=== PATIENT | male | born 1930 | race Caucasian/White ===

== ENCOUNTER 2017-09-02 10:34 | Inpatient (IN) ==
--- NOTE | 2017-09-02 11:48 | Emergency Department Note ---
Disposition Clinical Impression: Generalized weakness, Loculated pleural effusion Disposition: Admitted As Inpatient Condition: Fair Referrals: Rafy Pitts MD [Primary Care Provider] - Forms: ED Satisfaction Letter Time of Disposition: 15:28 Weakness HPI - General Chief complaint: ED Weakness Stated complaint: weak,BLE edema Time Seen by Provider: 09/02/17 10:36 Source: patient, other Mode of arrival: ambulatory Limitations: no limitations Nursing Notes Reviewed: Yes Vital Signs Reviewed: Yes - History of Present Illness HPI Narrative: 87-year-old renal failure patient who went to dialysis today and was having generalized weakness following dialysis. Pressure 71 over palp on arrival. He is awake and alert and answers questions appropriately. 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 Pain Scale: 0 - Related Data Home Medications Medication Instructions Recorded Confirmed Lanthanum Carbonate [Fosrenol] 500 mg PO TIDWM 10/13/15 10/12/16 Midodrine HCl 5 mg PO QMWF 10/13/15 10/12/16 Ethyl Chloride 1 applic TP QMWF 10/12/16 10/12/16 Previous Rx's Medication Instructions Recorded Cyanocobalamin (B-12) [Vitamin B12] 1,000 mcg PO DAILY #30 tablet 10/15/16 Ferrous Sulfate 325 mg PO BIDWM #60 tablet 10/15/16 Folic Acid 1 mg PO DAILY #30 tablet 10/15/16 Allergies Allergy/AdvReac Type Severity Reaction Status Date / Time No Known Allergies Allergy Verified 09/02/17 10:35 Past Medical History - Past Medical History Medical history: Reports: cancer, renal disease, other Surgical history: Reports: colostomy Psychiatric history: Reports: no psych history - Social History Smoking Status: Never smoker Smokeless Tobacco Status: No Alcohol use: Reports: none Drug use: Reports: none Physical Exam - General Limitations: no limitations General appearance: alert, in no apparent distress - Head Head exam: atraumatic, normocephalic, normal inspection - Eye Eye exam: Present: normal appearance, PERRL, EOMI - ENT ENT exam: normal exam, normal oropharynx, mucous membranes moist - Neck Neck exam: Present: normal inspection, full ROM, trachea midline - Chest Chest inspection: Present: normal inspection, symmetric chest wall rise - Respiratory Respiratory exam: Present: normal lung sounds bilaterally - Cardiovascular Cardiovascular exam: Present: regular rate, normal rhythm, normal heart sounds - Abdominal Exam Abdominal exam: Present: soft, Non-Tender. Absent: tenderness, distention, guarding, rebound, rigidity - Extremities Exam Extremities exam: Present: normal inspection, full ROM, pedal edema. Absent: tenderness - Expanded Lower Extremity Exam Neurovascular/Tendon exam: Absent: motor deficit, sensory deficit, tendon deficit Gait: observed and normal - Back Exam Back exam: Present: normal inspection, full ROM. Absent: tenderness - Neurological Exam Neurological exam: Present: alert, oriented X3. Absent: motor sensory deficit - Psychiatric Psychiatric exam: Present: normal affect, normal mood - Skin Skin exam: Present: warm, dry, intact, normal color Course - Reevaluation(s) Reevaluation #1: 87-year-old with history renal failure's on dialysis generally weak. Workup included a fluid collection in his chest he does have an elevated white count. Consultation obtained with nephrology. We will go ahead and admit him for further evaluation and treatment. Time: 15:27 - Consultations Consultation #1: Discussed with luis enrique Clay give 250 bolus fluids,, no pressors. He states the patient's blood pressure normally runs 80-90. Time: 11:48 Consultation #2: Discussed with murali Clay to give contrast. Time: 13:49 Consultation #3: Discussed with shanita Gunter. Time: 15:27 Vital Signs Temperature 97.7 F 09/02/17 10:35 Pulse Rate 79 09/02/17 10:35 Respiratory Rate 16 09/02/17 10:35 Blood Pressure 74/46 09/02/17 10:35 O2 Sat by Pulse Oximetry 95 09/02/17 10:35 Temperature 97.7 F 09/02/17 10:35 Pulse Rate 87 09/02/17 14:54 Respiratory Rate 18 09/02/17 14:54 Blood Pressure 95/51 09/02/17 14:54 O2 Sat by Pulse Oximetry 98 09/02/17 14:54 Oxygen Delivery Oxygen Delivery Room Air Weakness - Lab Data Result diagrams: 09/02/17 12:03 09/02/17 12:03 Lab Results 09/02/17 09/02/17 09/02/17 Range/Units 12:03 12:03 12:03 WBC 16.1 H (4.3-11.1) K/mcL RBC 3.75 L (4.19-5.50) M/mcL Hgb 11.4 L (12.9-16.9) g/dL Hct 34.8 L (37.5-50.1) % MCV 92.8 (83.0-100.0) fL MCH 30.4 (28.0-33.3) pg MCHC 32.8 (31.6-35.5) g/dL RDW 13.5 (11.5-14.5) % Plt Count 317 (140-400) K/mcL MPV 9.0 L (9.4-12.4) fL Immature Gran % 0.4 (0-4) % Seg Neutrophils % 91.9 % Lymphocytes % 3.2 % Monocytes % 4.3 % Eosinophils % 0.1 % Basophils % 0.1 % Neutrophils # 14.8 H (1.6-8.9) K/mcL Lymphocytes # 0.5 L (0.6-4.6) K/mcL Monocytes # 0.7 (0.0-1.3) K/mcL Eosinophils # 0.0 (0.0-0.6) K/mcL Basophils # 0.0 (0.0-0.2) K/mcL Sodium 141 (136-145) mEq/L Potassium 3.9 (3.5-5.1) mEq/L Chloride 97 L (98-107) mEq/L Carbon Dioxide 36 H (23-29) mEq/L BUN 20 (8-23) mg/dL Creatinine 4.16 H (0.70-1.30) mg/dL Est GFR ( Amer) 17 L (> 60) Est GFR (Non-Af Amer) 14 L (> 60) BUN/Creatinine Ratio 5 L (6-26) Glucose 103 (70-105) mg/dL Calculated Osmolality 295 (280-300) Calcium 9.3 (8.6-10.3) mg/dL Total Bilirubin 0.6 (0.3-1.0) mg/dL AST 13 (13-39) Units/L ALT 10 (7-52) Units/L Alkaline Phosphatase 80 (34-104) Units/L Troponin I 0.07 H* (< 0.04) ng/mL Serum Total Protein 5.8 L (6.4-8.9) g/dL Albumin 3.0 L (3.5-5.7) g/dL Globulin 2.8 (2.4-3.5) g/dL Albumin/Globulin Ratio 1.1 (1.1-2.2) - EKG Data EKG attestation: Yes I reviewed and interpreted this EKG. EKG shows normal: sinus rhythm Rate: tachycardia Rhythm: NSR [place]/QRS: normal Interpretation: no acute changes
[2017-09-02] MEDS ORDERED: 0.9 % Sodium Chloride 250 ML IVC ONE (11:50)
[2017-09-02 12:29] LABS: Basophils % 0.1 %; Eosinophils % 0.1 %; Hematocrit 34.8 % (37.5-50.1); Hemoglobin 11.4 g/dL (12.9-16.9); Immature Granulocytes % 0.4 % (0-4); Lymphocytes # 0.5 K/mcL (0.6-4.6); Lymphocytes % 3.2 %; Mean Corpuscular HGB Conc 32.8 g/dL (31.6-35.5); Mean Corpuscular Hemoglobin 30.4 pg (28.0-33.3); Mean Corpuscular Volume 92.8 fL (83.0-100.0); Monocytes # 0.7 K/mcL (0.0-1.3); Monocytes % 4.3 %; Neutrophils # 14.8 K/mcL (1.6-8.9); Platelet Count 317 K/mcL (140-400); Red Blood Count 3.75 M/mcL (4.19-5.50); Red Cell Distribution Width 13.5 % (11.5-14.5); Segmented Neutrophils % 91.9 %
[2017-09-02 12:31] LABS: Albumin/Globulin Ratio 1.1 (1.1-2.2); Bilirubin,Total 0.6 mg/dL (0.3-1.0); Calcium 9.3 mg/dL (8.6-10.3); Globulin 2.8 g/dL (2.4-3.5); Potassium 3.9 mEq/L (3.5-5.1); Total Protein 5.8 g/dL (6.4-8.9)
[2017-09-02] MEDS ORDERED: 0.9 % Sodium Chloride 1,000 ML IVC ONE (15:13)
[2017-09-02] MEDS ORDERED: *HR* HYDROcodone/Acet 5/325 mg TABLET PO PRN (15:14)
[2017-09-02] MEDS ORDERED: Naloxone 0.4 MG/ML INJ IVP PRN (15:14)
[2017-09-02] MEDS ORDERED: Piperacillin/Tazobactam 3.375 GM in Water for inj. (sterile) 20 ML 20 ML IVP ONE (15:14)
[2017-09-02] MEDS ORDERED: *HR* OxyCODONE Immed Rel 5 MG TABLET PO PRN (15:14)
[2017-09-02] MEDS ORDERED: Acetaminophen 325 MG TABLET PO PRN (15:14)
--- NOTE | 2017-09-02 15:20 | Internal Med History&Physical ---
Date of Encounter: 09/02/17 Time of Encounter: 15:19 Assessment and Plan (1) Sepsis Current visit: Yes Status: Acute Patient presented with tachycardia with HR 102 Afebrile Leukocytosis of 16,[address] with bronchiolitis Blood culture has been drawn, will follow Check lactate Started on Cef 2g daily, and azithromycin 500mg daily Check resp panel, urine legionella and strep Ag check lactate Qualifiers: Sepsis type: sepsis due to unspecified organism Qualified Code(s): A41.9 - Sepsis, unspecified organism (2) Bronchiolitis Current visit: Yes Status: Acute Patient with hx of cough, now presented with weakness and hypotension Start ceftriaxone and azithromycin. Send blood culture Send urine legionella Ag and Strep Ag Ordered resp panel (3) Pleural effusion Current visit: Yes Status: Acute Possibly chronic, as patient is not in respiratory distress and not tachypneic or hypoxic Loculated per CT scan IR consulted for thoracentensis, patient is on list for a.m NPO from [place] (4) ESRD (end stage renal disease) Current visit: Yes Status: Chronic Renal eval, ER called Dr. Bryant. HD on MWF Renal function is at his baseline (5) Vitamin D deficiency Current visit: Yes Status: Chronic continue home meds (6) Hypotension Current visit: Yes Status: Acute Possibly hemodialysis associated responded to bolus in the ER Baseline BP said to be in the 90s systolic Continue to monitor R/O pericardial effusion due to Left pleural effusion and pedal edema ECHO ordered Qualifiers: Hypotension type: hemodialysis-associated hypotension Qualified Code(s): I95.3 - Hypotension of hemodialysis (7) Malnutrition Current visit: Yes Status: Acute Patient with BMI 16, cachectic, said to have poor nutrition Consult teletypesetter monitor Qualifiers: Malnutrition type: protein-calorie malnutrition Protein-calorie malnutrition severity: severe Qualified Code(s): E43 - Unspecified severe protein-calorie malnutrition (8) Elevated troponin Current visit: Yes Status: Acute Patient with no chest pain, no EKG changes to suggest ischemia Cycle troponin Obtain ECHO (9) Generalized weakness Current visit: Yes Status: Acute PTO eval Probably due to hypotension Internal Medicine - H&P: HPI Chief complaint: Weakness Admitted From: Home Plans for Post Hospital Care: Home History of present illness: Mr. Lutz is a 87 year old male who was basically functional until 2 weeks ago when he complained of generalized weakness, fatigue, and difficulty moving from the hospital. At. He has a past medical history of end-stage renal disease and is on hemodialysis. 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 The patient also endorses dry cough, with no phlegm production, no fever, he endorses shortness of breath on mild exertion. He denies chest pain, nausea or vomiting, dizziness or diaphoresis. He has no abdominal symptoms. There has been worsening of his lower extremity edema since he finished dialysis. He has also been losing lots of weight in the past recent years He resides alone, and eats out mostly. Per family at the bedside, he was driving himself to dialysis and up and about till a few weeks ago when he started to decline They denied any confusion or changes in mental status but endorse "weight loss over several years since his " Other ROS is negative Past Med Surg Social Fam HX - Past Medical History Medical history: cancer, renal disease, other Psychiatric history: no psych history - Past Surgical History Surgical History: colostomy - Social History Smoking Status: Never smoker Smokeless Tobacco Status: No Alcohol use: none Drug use: none Internal Medicine - H&P: Meds Midodrine [ProAmatine] 10 mg PO MOWEFR 09/02/17 [History] 3 Allergy/AdvReac Type Severity Reaction Status Date / Time No Known Allergies Allergy Verified 09/02/17 10:35 All Systems PM: A 10-system review of systems was performed and is negative for pertinent findings except as documented above in the HPI. - Constitutional Constitutional: lethargy, malaise - EENT Eyes: no change in vision, no discharge, no pain, no photophobia Ears: no ear discharge, no ear pain, no tinnitus Nose, mouth and throat: no dysphagia, no nasal discharge, no neck pain, no sore throat - Cardiovascular Cardiovascular ROS IM: edema, no chest pain, no diaphoresis, no dyspnea, no lightheadedness, no palpitations, no syncope - Respiratory Respiratory: cough, dyspnea, no wheezing, no excessive phlegm production - Gastrointestinal Gastrointestinal: no abdominal pain, no diarrhea, no hematemesis, no hematochezia, no melena, no nausea, no vomiting - Musculoskeletal Musculoskeletal ROS IM: no numbness, no tingling - Integumentary Integumentary IM: no rash, no unusual bruising - Neurological Neurological ROS: no confusion, no convulsions, no focal weakness, no numbness, no tingling, no tremor(s) - Hematologic/Lymphatic Hematologic/Lymphatic: no easy bruising - Constitutional Vitals: Temp Pulse Resp BP Pulse Ox 97.7 F 87 18 95/51 98 09/02/17 10:35 09/02/17 14:54 09/02/17 14:54 09/02/17 14:54 09/02/17 14:54 General appearance: Present: cachectic, disheveled, A&O X 3, no acute distress - Head Head exam: Present: atraumatic, normocephalic - Eye Eye exam: Present: PERRL, conjuntiva pink, sclera anicteric Pupils: Present: PERRL - Neck Neck exam general surgery: Present: supple, trachea midline. Absent: lymphadenopathy - Respiratory Respiratory exam: Present: decreased breath sounds (L>R , worse on the bases), CTAB - Cardiovascular Cardiovascular exam: Present: RRR, +S1, +S2. Absent: diastolic murmur, gallop, rubs, systolic murmur - GI/Abdominal GI/Abdominal exam: Present: normal bowel sounds, soft, no peritoneal signs. Absent: distended, tenderness - Extremities Exam Extremities exam: Present: pedal edema (2+ piting pedal edema) - Neurological Exam Neurological exam: Present: alert, CN II-XII intact, oriented X3, no focal deficits. Absent: pronater drift, facial droop, speech deficit - Skin Skin exam: Present: dry, intact Internal Med - H&P Results - Labs CBC & Chem 7: 09/02/17 12:03 09/02/17 12:03 Labs: Short CBC 09/02/17 Range/Units 12:03 WBC 16.1 H (4.3-11.1) K/mcL Hgb 11.4 L (12.9-16.9) g/dL Hct 34.8 L (37.5-50.1) % Plt Count 317 (140-400) K/mcL Neutrophils # 14.8 H (1.6-8.9) K/mcL BMP 09/02/17 12:03 Sodium 141 Potassium 3.9 Chloride 97 L Carbon Dioxide 36 H BUN 20 Creatinine 4.16 H Glucose 103 Calcium 9.3 Cardiac Enzymes 09/02/17 Range/Units 12:03 Troponin I 0.07 H* (< 0.04) ng/mL Liver Function 09/02/17 Range/Units 12:03 Total Bilirubin 0.6 (0.3-1.0) mg/dL AST 13 (13-39) Units/L ALT 10 (7-52) Units/L Alkaline Phosphatase 80 (34-104) Units/L Albumin 3.0 L (3.5-5.7) g/dL - Impressions ITS Impressions Chest X-Ray 09/02/17 11:43 IMPRESSION: 1. Rounded right lower lung opacities could represent loculated pleural effusion with compressive atelectasis or posterior mediastinal/pleural masses. Recommend further evaluation with CT of the chest with contrast. D/ / Sylvester Gonzalez MD / Sylvester Gonzalez MD Interpreting Provider: Sylvester Gonzalez MD Head CT 09/02/17 11:49 IMPRESSION: 1. No acute intracranial abnormality. D/ / Sylvester Gonzalez MD / Sylvester Gonzalez MD Interpreting Provider: Sylvester Gonzalez MD Chest CT 09/02/17 13:48 IMPRESSION: 1. Moderate complex partially loculated right pleural effusion. Consider further evaluation with thoracentesis. 2. Left lower lobe bronchiolitis. D/ / Sylvester Gonzalez MD / Sylvester Gonzalez MD Interpreting Provider: Sylvester Gonzalez MD
[2017-09-02] MEDS: Folic Acid 1 MG TABLET PO SCH (15:49)
[2017-09-02] MEDS ORDERED: Azithromycin 500 MG in D5% in Water 250 ML IVPB SCH (16:00)
[2017-09-02] MEDS ORDERED: cefTRIAXone 2,000 MG in Water for inj. (sterile) 20 ML IVP SCH (16:00)
[2017-09-02] MEDS ORDERED: cefTRIAXone 2,000 MG in Water for inj. (sterile) 20 ML 20 ML IVP SCH (18:00)
[2017-09-02] MEDS: *HR* Heparin 5,000 UNIT/ML VIAL SQ SCH ×2 (18:20→23:46)
[2017-09-03 01:07] LABS: Basophils % 0.1 %; Eosinophils % 0.1 %; Hematocrit 35.5 % (37.5-50.1); Hemoglobin 11.4 g/dL (12.9-16.9); Immature Granulocytes % 0.5 % (0-4); Lymphocytes % 6.5 %; Mean Corpuscular HGB Conc 32.1 g/dL (31.6-35.5); Mean Corpuscular Hemoglobin 30.6 pg (28.0-33.3); Mean Corpuscular Volume 95.2 fL (83.0-100.0); Mean Platelet Volume 9.1 fL (9.4-12.4); Monocytes # 0.8 K/mcL (0.0-1.3); Monocytes % 5.1 %; Neutrophils # 13.3 K/mcL (1.6-8.9); Platelet Count 308 K/mcL (140-400); Red Blood Count 3.73 M/mcL (4.19-5.50); Red Cell Distribution Width 13.5 % (11.5-14.5); Segmented Neutrophils % 87.7 %
[2017-09-03 01:49] LABS: Calcium 9.5 mg/dL (8.6-10.3); Potassium 4.2 mEq/L (3.5-5.1)
[2017-09-03 06:44] LABS: Adenovirus Not Detected (Not Detect); Bordetella Pertussis Not Detected (Not Detect); Chlamydophila pneumoniae Not Detected (Not Detect); Coronavirus 229E Not Detected (Not Detect); Coronavirus HKU1 Not Detected (Not Detect); Coronavirus NL63 Not Detected (Not Detect); Coronavirus OC43 Not Detected (Not Detect); Human Metapneumovirus Not Detected (Not Detect); Human Rhinovirus/Enterovirus Not Detected (Not Detect); Influenza A Subtype 2009 H1 Not Detected (Not Detect); Influenza A Untypeable Not Detected (Not Detect); Influenza B Not Detected (Not Detect); Mycoplasma pneumoniae Not Detected (Not Detect); Parainfluenza Virus 1 Not Detected (Not Detect); Parainfluenza Virus 2 Not Detected (Not Detect); Parainfluenza Virus 3 Not Detected (Not Detect); Parainfluenza Virus 4 Not Detected (Not Detect); Respiratory Syncytial Virus Not Detected (Not Detect)
--- NOTE | 2017-09-03 08:09 | Nephrology Consult Note ---
Date of Encounter: 09/03/17 Time of Encounter: 08:07 Assessment and Plan (1) ESRD (end stage renal disease) Current Visit: Yes Status: Chronic Patient has end-stage renal disease and receives dialysis every Saturday in [place]. He has been patient has been deteriorating from a nutritional standpoint. I believe he has chronic systolic congestive heart failure as well although I do not see a recent echocardiogram. He certainly should have another echocardiogram done if one has not been ordered. He will continue to be supported with dialysis every Saturday. He has chronic lower extremity swelling. His hypotension precludes removing a lot of volume on dialysis. I suspect his weakness yesterday may have been related to too much volume removal with dialysis. (2) Generalized weakness Current Visit: Yes Status: Acute (3) Loculated pleural effusion Current Visit: Yes Status: Acute History of Present Illness - History of Present Illness This is an 87-year-old male with long-standing end-stage renal disease. He receives dialysis every Saturday in [place]. Patient presents emergency room yesterday with complaints of weakness following dialysis. He was noted to be hypotensive with a systolic blood pressure in the 70s. Typically his systolic blood pressure runs in the 80s to 90s. He does have a history where I believe his chronic systolic congestive heart failure. From a general medical standpoint he has been slowly deteriorating. He has been losing weight. He has chronic lower extremity swelling which is difficult to remove with dialysis because of chronic low blood pressure. The patient did receive a small amount of IV fluid in the emergency room yesterday. Today he says he is feeling better. He says he is feeling back to normal. His evaluation does show a loculated right pleural effusion. White count is slightly elevated at 15.2. Hemoglobin is satisfactory at 11.4. Current blood pressure is 93/58. He does continue to have chronic lower extremity swelling. He has been losing weight in general and his nutritional status has been deteriorating in general. Past Med Surg Social Fam HX - Past Medical History Medical history: cancer, renal disease, other Psychiatric history: no psych history - Past Surgical History Surgical History: colostomy - Social History Smoking Status: Former smoker Smokeless Tobacco Status: No Alcohol use: none Drug use: none - Family History Mother Hx Family Cardiac Disorders: Yes Hx Family Respiratory Disorders: No Hx Family Cancer: No Hx Family GI Disorders: No Hx Family Genitourinary Disorders: No Hx Family Endocrine Disorder: No Hx Family Musculoskeletal Disorders: No Hx Family Neuromuscular Disorders: No Hx Family Neurologic Disorders: No Hx Family HEENT Disorders: No Hx Family Autoimmune Disorders: No Hx Family Reproductive Disorders: No Hx Family Psychosocial Disorders: No Hx Family Medical Disorders: No Medications and Allergies Midodrine [ProAmatine] 10 mg PO MOWEFR 09/02/17 [History] 3 Allergy/AdvReac Type Severity Reaction Status Date / Time No Known Allergies Allergy Verified 09/02/17 10:35 Review of Systems Constitutional: as per HPI, weakness Eyes: bilateral: blurred vision (patient denies), diplopia (patient denies) Nose, mouth and throat: no dizziness, no headache(s) Cardiovascular: dyspnea on exertion, edema Respiratory: dyspnea on exertion Gastrointestinal: as per HPI, other Musculoskeletal: no muscle weakness, no numbness Integumentary: no hirsutism, no striae Neurological: weakness Psychiatric: no depression, no difficulty concentrating Hematologic/Lymphatic: no easy bruising, no lymphadenopathy Exam - Vital Signs Vital signs: Initial Vital Signs Temp Pulse Resp BP Pulse Ox 97.7 F 79 16 74/46 95 09/02/17 10:35 09/02/17 10:35 09/02/17 10:35 09/02/17 10:35 09/02/17 10:35 Vital Signs - Last 8 Hours Temp Pulse Resp BP Pulse Ox 09/03/17 05:49 97.9 F 65 16 93/58 97 Intake and Output 09/02/17 09/03/17 09/03/17 23:59 07:59 15:59 Intake Total 0 / 0 Output Total 50 / 50 Balance 0 / 0 -50 / -50 Intake: Oral 0 / 0 Output: Stool 50 / 50 Other: Weight 49.442 kg 49.5 kg Patient Weight 09/03/17 23:59 Weight 49.5 kg - General Appearance Exam: The patient currently is alert and oriented. He is in no acute distress. Blood pressure is 93/58. Lungs exhibit diminished breath sounds bilaterally. Heart irregular rate and rhythm with a systolic ejection murmur. Abdomen is nontender. A colostomy is present. There is 2+ lower extremity swelling. There is a functioning AV fistula in the left upper extremity. Results - Lab Results 09/03/17 00:54 09/03/17 00:54 Most recent lab results Calcium 9.5 mg/dL (8.6-10.3) 09/03/17 00:54 Consult Discharge Plan - Plan Referrals: Rafy Pitts MD [Primary Care Provider] -
[2017-09-03 08:18] LABS: Hepatitis B Surface Antigen Nonreactive (Nonreactive)
[2017-09-03 08:39] LABS: INR 1.3
[2017-09-03] MEDS: Cyanocobalamin (B-12) 1,000 MCG TABLET PO SCH (08:46)
[2017-09-03] MEDS: Folic Acid 1 MG TABLET PO SCH (08:46)
[2017-09-03] MEDS: *HR* Heparin 5,000 UNIT/ML VIAL SQ SCH ×3 (08:46→21:21)
[2017-09-03] MEDS ORDERED: Vancomycin 1 EACH in 0.9 % Sodium Chloride 250 ML IVPB SCH (14:00)
--- NOTE | 2017-09-03 16:32 | Internal Med Progress Note ---
Date of Encounter: 09/03/17 Time of Encounter: 11:00 - Assessment and plan (1) Loculated pleural effusion Current Visit: Yes Status: Acute Assessment and plan: -Chest x-ray showed right lower lung opacities with suspicion for loculated pleural effusion and CT of the chest show moderate complex partially loculated right pleural effusion. -IR consult at and thoracentesis was done and a total of 10 mL of purulent fluid was removed with recommendations for chest tube -pulmonology has been consulted and appreciate recommendations -IV antibiotics have been switched from azithromycin/ceftriaxone to Zosyn/ vancomycin (2) Sepsis Current Visit: Yes Status: Acute Assessment and plan: -Suspect secondary to the above -Patient with leukocytosis but afebrile -Management as above Qualifiers: Sepsis type: sepsis due to unspecified organism Qualified Code(s): A41.9 - Sepsis, unspecified organism (3) Hypotension Current Visit: Yes Status: Acute Assessment and plan: -Blood pressures have improved; unsure of baseline. -Will continue to monitor Qualifiers: Hypotension type: hemodialysis-associated hypotension Qualified Code(s): I95.3 - Hypotension of hemodialysis (4) Generalized weakness Current Visit: Yes Status: Acute Assessment and plan: -Patient appears cachectic/malnourished with above loculated pleural effusion (5) Stage II carcinoma of colon Current Visit: No Status: Acute Assessment and plan: -Status post colostomy (6) Malnutrition Current Visit: Yes Status: Acute Assessment and plan: -BMI of 16.1 Qualifiers: Malnutrition type: protein-calorie malnutrition Protein-calorie malnutrition severity: severe Qualified Code(s): E43 - Unspecified severe protein-calorie malnutrition (7) DVT prophylaxis Current Visit: Yes Status: Acute Assessment and plan: Subcutaneous heparin - Subjective Interval history: Patient with continued generalized weakness. IR consult and purulent drainage removed with recommendations for chest tube - Constitutional Vitals: Temp Pulse Resp BP Pulse Ox 97.9 F 95 18 106/65 96 09/03/17 11:06 09/03/17 11:06 09/03/17 11:06 09/03/17 11:06 09/03/17 11:06 General appearance: Present: cachectic, disheveled, A&O X 3, no acute distress, underweight - Respiratory Respiratory exam: Present: CTAB. Absent: accessory muscle use, rales, rhonchi, wheezes - Cardiovascular Cardiovascular exam: Present: RRR, +S1, +S2. Absent: diastolic murmur, gallop, rubs, systolic murmur - Psychiatric Psychiatric exam: Present: normal mood Internal Medicine: Result - Labs CBC & Chem 7: 09/03/17 00:54 09/03/17 00:54 Labs: Short CBC 09/03/17 Range/Units 00:54 WBC 15.2 H (4.3-11.1) K/mcL Hgb 11.4 L (12.9-16.9) g/dL Hct 35.5 L (37.5-50.1) % Plt Count 308 (140-400) K/mcL Neutrophils # 13.3 H (1.6-8.9) K/mcL BMP 09/03/17 00:54 Sodium 138 Potassium 4.2 Chloride 96 L Carbon Dioxide 31 H BUN 27 H Creatinine 5.18 H Glucose 93 Calcium 9.5 Cardiac Enzymes 09/02/17 09/03/17 Range/Units 20:24 00:54 Troponin I 0.06 H* 0.04 H* (< 0.04) ng/mL - ABG Interpretation ABG results: PT/INR, D-dimer PT 14.0 Seconds (9.4-12.1) H 09/03/17 08:07 - Impressions Impressions Needle Aspiration CT 09/03/17 00:00 IMPRESSION: Loculated empyema. Successful CT guided placement of right pleural abscess drainage catheter. D/ / Garrett Patrick MD / Garrett Patrick MD Interpreting Provider: Garrett Patrick MD Thoracentesis Ultrasound 09/03/17 00:00 IMPRESSION: Successful ultrasound guided thoracentesis. D/ / Garrett Patrick MD / Garrett Patrick MD Interpreting Provider: Garrett Patrick MD Consult Discharge Plan - Plan Referrals: Rafy Pitts MD [Primary Care Provider] -
[2017-09-03] MEDS: Piperacillin/Tazobactam 3.375 GM in 0.9 % Sodium Chloride Mini Bag 100 ML IVPB SCH (18:53)
[2017-09-04] MEDS: Piperacillin/Tazobactam 3.375 GM in 0.9 % Sodium Chloride Mini Bag 100 ML IVPB SCH ×2 (05:10→19:52)
[2017-09-04 05:14] LABS: Basophils % 0.1 %; Eosinophils % 0.4 %; Hematocrit 26.9 % (37.5-50.1); Immature Granulocytes % 0.5 % (0-4); Lymphocytes # 0.7 K/mcL (0.6-4.6); Lymphocytes % 7.4 %; Mean Corpuscular HGB Conc 32.7 g/dL (31.6-35.5); Mean Corpuscular Hemoglobin 30.4 pg (28.0-33.3); Mean Corpuscular Volume 93.1 fL (83.0-100.0); Mean Platelet Volume 9.4 fL (9.4-12.4); Monocytes # 0.6 K/mcL (0.0-1.3); Monocytes % 6.3 %; Neutrophils # 8.6 K/mcL (1.6-8.9); Platelet Count 225 K/mcL (140-400); Red Blood Count 2.89 M/mcL (4.19-5.50); Red Cell Distribution Width 13.6 % (11.5-14.5); Segmented Neutrophils % 85.3 %
[2017-09-04 05:22] LABS: Hemoglobin 8.8 g/dL (12.9-16.9)
[2017-09-04 05:50] LABS: Albumin 2.2 g/dL (3.5-5.7); Albumin/Globulin Ratio 0.9 (1.1-2.2); Bilirubin,Total 0.3 mg/dL (0.3-1.0); Calcium 8.7 mg/dL (8.6-10.3); Globulin 2.4 g/dL (2.4-3.5); Potassium 4.4 mEq/L (3.5-5.1); Total Protein 4.6 g/dL (6.4-8.9)
[2017-09-04] MEDS ORDERED: 0.9 % Sodium Chloride 1,000 ML ONE (07:08)
[2017-09-04] MEDS ORDERED: 0.9 % Sodium Chloride 250 ML IVC PRN (08:03)
--- NOTE | 2017-09-04 08:03 | Nephrology Progress Note ---
Date of Encounter: 09/04/17 Time of Encounter: 08:01 - Assessment and Plan (1) ESRD (end stage renal disease) Current Visit: Yes Status: Chronic Patient will undergo dialysis today. Volume removal is limited by low blood pressure. His echocardiogram looks surprisingly good. I think we need to look for other reasons for chronic hypotension including adrenal insufficiency. I will order cortisol level as well as some thyroid studies. 0.8. He will be maintained on Aranesp for his anemia. (2) Generalized weakness Current Visit: Yes Status: Acute (3) Loculated pleural effusion Current Visit: Yes Status: Acute Subjective Interval history: Patient continues to experience some weakness. He had a thoracentesis yesterday which showed purulent fluid. Currently a chest tube is in place. Studies are pending. Echocardiogram actually looked quite good. He continues to have low blood pressure in has had some IV fluid boluses. Objective - Vital Signs Vital signs: Vital Signs Temp Pulse Resp BP Pulse Ox 09/04/17 06:52 98.1 F 79 14 81/38 92 09/04/17 04:58 97.7 F 76 16 101/61 92 09/04/17 01:16 97.9 F 81 16 105/65 93 09/03/17 22:17 98.1 F 82 16 92/49 96 09/03/17 11:06 97.9 F 95 18 106/65 96 Intake and Output 09/03/17 09/04/17 09/04/17 23:59 07:59 15:59 Intake Total 100 / 100 600 / 600 Output Total 0 / 0 500 / 500 Balance 100 / 100 100 / 100 Intake: IV Fluids 100 / 100 Zosyn 3.375 GM In 0.9 % Sodium 100 / 100 Chloride (Mini-Bag +) 100 ML @ 25 mls/hr IVPB Q12HR [facility] Rx#: [id number] Oral 600 / 600 Output: Stool 100 / 100 Wound Drainage 200 / 200 Right Lateral Chest 200 / 200 Chest Tube Drainage 0 / 0 200 / 200 Right Anterior Chest 0 / 0 200 / 200 Other: Weight 48.3 kg Patient Weight 09/04/17 23:59 Weight 48.3 kg - General Appearance Exam: Patient is alert and oriented. He is in no acute distress. A right chest tube is in place. He appears chronically ill and cachectic. Lungs diminished breath sounds. Heart regular rate and rhythm with a 2/6 systolic ejection murmur. Abdomen is soft. A colostomy is present. He has at least 2+ lower extremity swelling. There is a functioning AV fistula in the left upper extremity. - Lab 09/04/17 04:27 09/04/17 04:27 Most recent lab results Calcium 8.7 mg/dL (8.6-10.3) 09/04/17 04:27 Consult Discharge Plan - Plan Referrals: Rafy Pitts MD [Primary Care Provider] -
[2017-09-04] MEDS ORDERED: Cosyntropin 250 MCG/2 ML VIAL IVP ONE (08:04)
[2017-09-04] MEDS: Cyanocobalamin (B-12) 1,000 MCG TABLET PO SCH (09:50)
[2017-09-04] MEDS: Folic Acid 1 MG TABLET PO SCH (09:50)
--- NOTE | 2017-09-04 10:40 | Pulmonology Consult Note ---
Date of Encounter: 09/04/17 Time of Encounter: 09:35 Past Med Surg Social Fam HX - Past Medical History Medical history: cancer, renal disease, other Psychiatric history: no psych history - Past Surgical History Surgical History: colostomy - Social History Smoking Status: Former smoker Smokeless Tobacco Status: No Alcohol use: none Drug use: none - Family History Mother Hx Family Cardiac Disorders: Yes Hx Family Respiratory Disorders: No Hx Family Cancer: No Hx Family GI Disorders: No Hx Family Genitourinary Disorders: No Hx Family Endocrine Disorder: No Hx Family Musculoskeletal Disorders: No Hx Family Neuromuscular Disorders: No Hx Family Neurologic Disorders: No Hx Family HEENT Disorders: No Hx Family Autoimmune Disorders: No Hx Family Reproductive Disorders: No Hx Family Psychosocial Disorders: No Hx Family Medical Disorders: No Medications and Allergies Midodrine [ProAmatine] 10 mg PO MOWEFR 09/02/17 [History] 3 Allergy/AdvReac Type Severity Reaction Status Date / Time No Known Allergies Allergy Verified 09/02/17 10:35 All Systems: The remainder of the systems were reviewed and are negative Physical Examination Vital Signs: Vital Signs, Last 4 Hours Temp Pulse Resp BP Pulse Ox 09/04/17 09:49 94/52 09/04/17 09:27 94/52 09/04/17 06:52 98.1 F 79 14 81/38 92 Results - Laboratory Findings CBC and BMP: 09/04/17 04:27 09/04/17 04:27 PT/INR, D-dimer PT 14.0 Seconds (9.4-12.1) H 09/03/17 08:07 Abnormal lab findings: Abnormal lab results RBC 2.89 M/mcL (4.19-5.50) L 09/04/17 04:27 Hgb 8.8 g/dL (12.9-16.9) L D 09/04/17 04:27 Hct 26.9 % (37.5-50.1) L 09/04/17 04:27 PT 14.0 Seconds (9.4-12.1) H 09/03/17 08:07 Sodium 135 mEq/L (136-145) L 09/04/17 04:27 Carbon Dioxide 30 mEq/L (23-29) H 09/04/17 04:27 BUN 40 mg/dL (8-23) H 09/04/17 04:27 Creatinine 6.92 mg/dL (0.70-1.30) H 09/04/17 04:27 Est GFR ( Amer) 9 (> 60) L 09/04/17 04:27 Est GFR (Non-Af Amer) 8 (> 60) L 09/04/17 04:27 Glucose 106 mg/dL (70-105) H 09/04/17 04:27 AST 10 Units/L (13-39) L 09/04/17 04:27 Troponin I 0.04 ng/mL (< 0.04) H* 09/03/17 00:54 Serum Total Protein 4.6 g/dL (6.4-8.9) L 09/04/17 04:27 Albumin 2.2 g/dL (3.5-5.7) L 09/04/17 04:27 Albumin/Globulin Ratio 0.9 (1.1-2.2) L 09/04/17 04:27 - Microbiology Findings Microbiology Findings: Microbiology, Last 48 Hours 09/03/17 12:56 Body Fluid Culture - Preliminary Pleural Fluid - Clinical Findings Intake & Output: Intake & Output 09/03/17 09/04/17 09/04/17 23:59 07:59 15:59 Intake Total 100 / 100 600 / 600 0 / 0 Output Total 0 / 0 500 / 500 Balance 100 / 100 100 / 100 0 / 0 Weight 48.3 kg Consult Discharge Plan - Plan Referrals: Rafy Pitts MD [Primary Care Provider] -
[2017-09-04] MEDS: *HR* Heparin 5,000 UNIT/ML VIAL SQ SCH ×2 (11:09→18:10)
--- NOTE | 2017-09-04 11:20 | Cardiothoracic Consult Note ---
Date of Encounter: 09/04/17 Time of Encounter: 11:17 Assessment and Plan (1) Pleural effusion Current Visit: Yes Status: Acute The chest tube has begun to drain and there is 200 mL of pus out the chest tube. I discussed inserting a larger chest tube with the patient. He is presently opposed to this and wants to see if the smaller chest tube will continue to drain. I do not feel that the patient is in good enough medical shape for any type of operative intervention. We will continue to follow and if the smaller chest tube does not resolve the problem, we can insert a larger chest tube in the patient's room if the patient agrees. - History of Present Illness History of present illness: Mr. Lutz is a 87 year old male History of present illness. The patient is an 87-year-old gentleman who presented with cough, weakness and hypotension. He does have chronic renal failure and is on dialysis 3 days a week. The history and physical are somewhat limited as the patient was receiving dialysis when I saw him and he is mildly confused. He did have a right-sided empyema and a chest tube was inserted in interventional radiology. Past Med Surg Social Fam HX - Past Medical History Medical history: cancer, renal disease, other Psychiatric history: no psych history - Past Surgical History Surgical History: colostomy - Social History Smoking Status: Former smoker Smokeless Tobacco Status: No Alcohol use: none Drug use: none - Family History Mother Hx Family Cardiac Disorders: Yes Hx Family Respiratory Disorders: No Hx Family Cancer: No Hx Family GI Disorders: No Hx Family Genitourinary Disorders: No Hx Family Endocrine Disorder: No Hx Family Musculoskeletal Disorders: No Hx Family Neuromuscular Disorders: No Hx Family Neurologic Disorders: No Hx Family HEENT Disorders: No Hx Family Autoimmune Disorders: No Hx Family Reproductive Disorders: No Hx Family Psychosocial Disorders: No Hx Family Medical Disorders: No Medications and Allergies Midodrine [ProAmatine] 10 mg PO MOWEFR 09/02/17 [History] 3 Allergy/AdvReac Type Severity Reaction Status Date / Time No Known Allergies Allergy Verified 09/02/17 10:35 All Systems Review: The remainder of the systems were reviewed and are negative Physical Examination Vital Signs, Last 4 Hours Temp Resp BP 09/04/17 11:00 78/45 09/04/17 10:45 80/49 09/04/17 10:30 78/50 09/04/17 10:15 83/49 09/04/17 10:00 97.4 F L 18 83/49 09/04/17 09:49 94/52 09/04/17 09:27 94/52 The lungs have slight decreased breath sounds and dullness to percussion at the right base. Presently there is 200 mL of gross pus in the pleura Vac. The chest tube was flushed earlier by pulmonology. Heart is in a regular rate and rhythm. The patient does have a right colostomy for unclear reasons. There is some excoriation and redness around the colostomy bag. Results 09/04/17 04:27 09/04/17 04:27 Lab Results, Last 24 hours 09/04/17 09/04/17 04:27 04:27 WBC 10.1 Hgb 8.8 L D Hct 26.9 L Plt Count 225 Sodium 135 L Potassium 4.4 Chloride 98 Carbon Dioxide 30 H BUN 40 H Creatinine 6.92 H Glucose 106 H Calcium 8.7 Total Bilirubin 0.3 AST 10 L ALT 8 Alkaline Phosphatase 80 Consult Discharge Plan - Plan Referrals: Rafy Pitts MD [Primary Care Provider] -
--- NOTE | 2017-09-04 17:10 | Pulmonology Consult Note ---
Date of Encounter: 09/04/17 Time of Encounter: 10:40 History of Present Illness Consult date: 09/04/17 Requesting physician: Rashaad Moy Reason for consult: pleural effusion, other (Chest tube management) Chief complaint: Weakness History of present illness: This is a pleasant 87-year-old male with multiple medical problems who with generalized weakness and he has end-stage renal disease. Patient was found to have loculated pleural effusion and he had chest tube placed with pus findings and he denies any chest pain and he denies any fever or chills. The patient denies any hemoptysis he does have some dry cough but no sputum production. Patient denies any aspiration problem with food. He denies any confusion or loss of consciousness. Overall he has slow weight loss and he denies any history of TB or any infectious diseases in the past. Past Med Surg Social Fam HX - Past Medical History Medical history: cancer, renal disease, other Psychiatric history: no psych history - Past Surgical History Surgical History: colostomy - Social History Smoking Status: Former smoker Smokeless Tobacco Status: No Alcohol use: none Drug use: none - Family History Mother Hx Family Cardiac Disorders: Yes Hx Family Respiratory Disorders: No Hx Family Cancer: No Hx Family GI Disorders: No Hx Family Genitourinary Disorders: No Hx Family Endocrine Disorder: No Hx Family Musculoskeletal Disorders: No Hx Family Neuromuscular Disorders: No Hx Family Neurologic Disorders: No Hx Family HEENT Disorders: No Hx Family Autoimmune Disorders: No Hx Family Reproductive Disorders: No Hx Family Psychosocial Disorders: No Hx Family Medical Disorders: No Medications and Allergies Midodrine [ProAmatine] 10 mg PO MOWEFR 09/02/17 [History] 3 Allergy/AdvReac Type Severity Reaction Status Date / Time No Known Allergies Allergy Verified 09/02/17 10:35 All Systems: The remainder of the systems were reviewed and are negative Physical Examination Vital Signs: Vital Signs, Last 4 Hours Temp Pulse Resp BP Pulse Ox 09/04/17 16:19 98.1 F 94 17 80/30 96 09/04/17 13:53 97.1 F L 18 80/46 General appearance: appears uncomfortable Eyes: nonicteric Mallampati (class): 2 Neck: supple Effort: normal Inspection: hyperextended, kyphosis Auscultation: left: clear, right: diminished breath sounds Percussion: left: not dull, right: dull Cardiovascular: regular rate and rhythm, murmur noted Gastrointestinal: normoactive bowel sounds, other (Colostomy) Extremities: no cyanosis normal mental status mood appropriate Results - Laboratory Findings CBC and BMP: 09/04/17 04:27 09/04/17 04:27 PT/INR, D-dimer PT 14.0 Seconds (9.4-12.1) H 09/03/17 08:07 Abnormal lab findings: Abnormal lab results RBC 2.89 M/mcL (4.19-5.50) L 09/04/17 04:27 Hgb 8.8 g/dL (12.9-16.9) L D 09/04/17 04:27 Hct 26.9 % (37.5-50.1) L 09/04/17 04:27 PT 14.0 Seconds (9.4-12.1) H 09/03/17 08:07 Sodium 135 mEq/L (136-145) L 09/04/17 04:27 Carbon Dioxide 30 mEq/L (23-29) H 09/04/17 04:27 BUN 40 mg/dL (8-23) H 09/04/17 04:27 Creatinine 6.92 mg/dL (0.70-1.30) H 09/04/17 04:27 Est GFR ( Amer) 9 (> 60) L 09/04/17 04:27 Est GFR (Non-Af Amer) 8 (> 60) L 09/04/17 04:27 Glucose 106 mg/dL (70-105) H 09/04/17 04:27 AST 10 Units/L (13-39) L 09/04/17 04:27 Troponin I 0.04 ng/mL (< 0.04) H* 09/03/17 00:54 Serum Total Protein 4.6 g/dL (6.4-8.9) L 09/04/17 04:27 Albumin 2.2 g/dL (3.5-5.7) L 09/04/17 04:27 Albumin/Globulin Ratio 0.9 (1.1-2.2) L 09/04/17 04:27 - Microbiology Findings Microbiology Findings: Microbiology, Last 48 Hours 09/03/17 12:56 Body Fluid Culture - Preliminary Pleural Fluid - Diagnostic Findings CT scan - chest: report reviewed, image reviewed - Clinical Findings Intake & Output: Intake & Output 09/04/17 09/04/17 09/04/17 07:59 15:59 23:59 Intake Total 600 / 600 600 / 600 Output Total 500 / 500 1237 / 1237 175 / 175 Balance 100 / 100 -637 / -637 -175 / -175 Weight 48.3 kg Consult Discharge Plan - Plan Referrals: Rafy Pitts MD [Primary Care Provider] - - Attending Attestation 1. Empyema: And chest tube initially was not draining anything with thick pus and manually I flushed it with sterile normal saline after that some drainage started to come out, but still thick material and for that reason a consult with cardiothoracic surgeon for evaluation either and larger chest tube or even decortication, however with overall patient's general health is status he might be high risk. Continue follow-up on cultures and sensitivities from the fluid and adjust antibiotics based on final cultures. Patient has loculated pleural effusion. 2. End stage renal disease on hemodialysis Thank you for the consultation and will continue follow-up
--- NOTE | 2017-09-04 17:11 | Internal Med Progress Note ---
Date of Encounter: 09/04/17 Time of Encounter: 11:00 - Assessment and plan (1) Loculated pleural effusion Current Visit: Yes Status: Acute Assessment and plan: -Chest x-ray showed right lower lung opacities with suspicion for loculated pleural effusion and CT of the chest show moderate complex partially loculated right pleural effusion. -IR consult at and thoracentesis was done and a total of 10 mL of purulent fluid was removed with recommendations for chest tube which was placed on -However not much drainage therefore cardiothoracic surgery was consult with recommendations for placement of a larger chest tube. -Patient has been afebrile and leukocytosis has resolved; will continue current management with IV Zosyn/vancomycin until sensitivities -Pulmonology following. Appreciate any further recommendations (2) Sepsis Current Visit: Yes Status: Acute Assessment and plan: -Suspect secondary to the above -Management as above Qualifiers: Sepsis type: sepsis due to unspecified organism Qualified Code(s): A41.9 - Sepsis, unspecified organism (3) Hypotension Current Visit: Yes Status: Acute Assessment and plan: -Blood pressures have been low throughout his admission; unsure of baseline. -Will continue to monitor Qualifiers: Hypotension type: hemodialysis-associated hypotension Qualified Code(s): I95.3 - Hypotension of hemodialysis (4) Generalized weakness Current Visit: Yes Status: Acute Assessment and plan: -Patient appears cachectic/malnourished with above loculated pleural effusion (5) Stage II carcinoma of colon Current Visit: No Status: Acute Assessment and plan: -Status post colostomy (6) Malnutrition Current Visit: Yes Status: Acute Assessment and plan: -BMI of 16.1 Qualifiers: Malnutrition type: protein-calorie malnutrition Protein-calorie malnutrition severity: severe Qualified Code(s): E43 - Unspecified severe protein-calorie malnutrition (7) DVT prophylaxis Current Visit: Yes Status: Acute Assessment and plan: Subcutaneous heparin - Subjective Interval history: Patient with continued generalized weakness. IR consult and purulent drainage removed with recommendations for chest tube which was placed on 09/03/17 However not much has drained so cardiothoracic surgery was consulted with recommendations for a larger chest tube placement but patient would like to continue to monitor - Constitutional Vitals: Temp Pulse Resp BP Pulse Ox 98.1 F 94 17 80/30 96 09/04/17 16:19 09/04/17 16:19 09/04/17 16:19 09/04/17 16:19 09/04/17 16:19 General appearance: Present: cachectic, disheveled, A&O X 3, no acute distress, underweight - Respiratory Respiratory exam: Present: CTAB. Absent: accessory muscle use, rales, rhonchi, wheezes - Cardiovascular Cardiovascular exam: Present: RRR, +S1, +S2. Absent: diastolic murmur, gallop, rubs, systolic murmur Internal Medicine: Result - Labs CBC & Chem 7: 09/04/17 04:27 09/04/17 04:27 Labs: Short CBC 09/04/17 Range/Units 04:27 WBC 10.1 (4.3-11.1) K/mcL Hgb 8.8 L D (12.9-16.9) g/dL Hct 26.9 L (37.5-50.1) % Plt Count 225 (140-400) K/mcL Neutrophils # 8.6 (1.6-8.9) K/mcL BMP 09/04/17 04:27 Sodium 135 L Potassium 4.4 Chloride 98 Carbon Dioxide 30 H BUN 40 H Creatinine 6.92 H Glucose 106 H Calcium 8.7 Liver Function 09/04/17 Range/Units 04:27 Total Bilirubin 0.3 (0.3-1.0) mg/dL AST 10 L (13-39) Units/L ALT 8 (7-52) Units/L Alkaline Phosphatase 80 (34-104) Units/L Albumin 2.2 L (3.5-5.7) g/dL - ABG Interpretation ABG results: PT/INR, D-dimer PT 14.0 Seconds (9.4-12.1) H 09/03/17 08:07 - Impressions Impressions Echocardiogram 09/03/17 16:39 Impressions: LVEF 60%. Normal LV chamber size and function. Mild asymmetric hypetrophy of the basal septum. Mild left ventricular diastolic dysfunction. Normal right ventricular structure and function. Mild aortic stenosis. Mean gradient 11 mmHg. Mild tricuspid regurgitation. No evidence of pulmonary hypertension. Left Ventricular Wall Motion: Rest Echo Findings All wall segments showed normal motion. Findings: Study Quality * Technically adequate exam. ECG Findings * Normal sinus rhythm. Left Ventricle * LVEF 60%. * Normal LV chamber size and function. * Mild asymmetric hypetrophy of the basal septum. * Mild left ventricular diastolic dysfunction. Right Ventricle * Normal right ventricular structure and function. Left Atrium * Normal left atrial size. Right Atrium * Normal right atrial size. Interatrial Septum * Interatrial septum not well evaluated. Aortic Valve * Mild to moderately calcified aortic valve leaflets. The number of leaflets cannot be determined. * No aortic regurgitation. * Mild aortic stenosis. Mean gradient 11 mmHg. Mitral Valve * Mild mitral annular calcification * Mildly thickened mitral valve leaflets. * No mitral regurgitation. * No mitral stenosis. Tricuspid Valve * Normal tricuspid valve structure. * Mild tricuspid regurgitation. * No pulmonary hypertension. Pulmonic Valve * Normal pulmonic valve structure and function. * No pulmonic regurgitation. Aorta * Normally sized aortic root. Pericardium * The pericardium appears normal. IVC * Normal IVC dimensions and inspiratory collapse. Pulmonary Artery * Normal visualized portions of the main pulmonary artery. Chest X-Ray 09/04/17 10:50 IMPRESSION: Status post right chest tube placement demonstrating what appears to be a decrease in pleural fluid. No pneumothorax. D/ / 09/04/2017 15:44:42 Lit Tenorio MD / lisseth Interpreting Provider: Lit Tenorio MD Consult Discharge Plan - Plan Referrals: Rafy Pitts MD [Primary Care Provider] -
[2017-09-05] MEDS: *HR* Heparin 5,000 UNIT/ML VIAL SQ SCH ×3 (01:30→18:12)
[2017-09-05] MEDS: Piperacillin/Tazobactam 3.375 GM in 0.9 % Sodium Chloride Mini Bag 100 ML IVPB SCH ×2 (07:20→18:10)
[2017-09-05] MEDS ORDERED: Cosyntropin 250 MCG/2 ML VIAL IVP ONE (09:53)
--- NOTE | 2017-09-05 10:55 | Nephrology Progress Note ---
Date of Encounter: 09/05/17 Time of Encounter: 10:30 - Assessment and Plan (1) ESRD (end stage renal disease) Current Visit: Yes Status: Chronic No HD today, keeping MWF schedule. Work up started to rule out adrenal insufficiency. (2) Generalized weakness Current Visit: Yes Status: Acute Subjective Interval history: Laying in bed. Niece at bedside. States feels about same, no new complaints. Objective - Vital Signs Vital signs: Vital Signs Temp Pulse Resp BP Pulse Ox 09/05/17 08:00 97.9 F 87 15 100/50 97 09/05/17 04:22 98.5 F 80 16 96/56 92 09/05/17 00:14 98.2 F 76 16 94/60 95 09/04/17 20:30 98.4 F 78 16 90/50 91 09/04/17 16:19 98.1 F 94 17 80/30 96 09/04/17 13:53 97.1 F L 18 80/46 09/04/17 13:00 78/41 09/04/17 12:45 78/45 09/04/17 12:30 79/47 09/04/17 12:15 75/44 09/04/17 12:00 77/50 09/04/17 11:45 77/48 09/04/17 11:30 77/47 09/04/17 11:15 77/48 09/04/17 11:00 78/45 Intake and Output 09/04/17 09/05/17 09/05/17 23:59 07:59 15:59 Intake Total 100 / 100 100 / 100 Output Total 575 / 575 300 / 300 100 / 100 Balance -575 / -575 -200 / -200 0 / 0 Intake: IV Fluids 100 / 100 100 / 100 Zosyn 3.375 GM In 0.9 % Sodium 100 / 100 100 / 100 Chloride (Mini-Bag +) 100 ML @ 25 mls/hr IVPB Q12HR [facility] Rx#: [id number] Oral 0 / 0 Output: Stool 375 / 375 100 / 100 100 / 100 Wound Drainage 200 / 200 200 / 200 Right Lateral Chest 200 / 200 200 / 200 Other: Meal Breakfast Percent of Meal Consumed 50% Stool Consistency liquid loose liquid Stool Color Brown Brown Weight 48.3 kg Patient Weight 09/05/17 23:59 Weight 48.3 kg - General Appearance General appearance: Present: frail EENT: Present: mucous membranes moist Neck: Present: no JVD Respiratory: Present: clear Additional Comments: diminshed. Right chest tube to drainage Cardiology: Present: regular rate, regular rhythm Additional Comments: LE edema 1-2+ Gastrointestinal: Present: normoactive bowel sounds, no tenderness Additional Comments: colostomy Integumentary: Present: warm and dry Neurologic: Present: alert and oriented x3 - Lab 09/04/17 04:27 09/04/17 04:27 Most recent lab results Calcium 8.7 mg/dL (8.6-10.3) 09/04/17 04:27 Consult Discharge Plan - Plan Referrals: Ankit Stewart MD [Partnered Physician] - 09/10/17 1:00 pm
[2017-09-05 11:00] LABS: Basophils % 0.1 %; Eosinophils # 0.1 K/mcL (0.0-0.6); Eosinophils % 0.7 %; Hematocrit 24.3 % (37.5-50.1); Hemoglobin 7.7 g/dL (12.9-16.9); Immature Granulocytes % 0.6 % (0-4); Lymphocytes # 0.6 K/mcL (0.6-4.6); Lymphocytes % 7.1 %; Mean Corpuscular HGB Conc 31.7 g/dL (31.6-35.5); Mean Corpuscular Hemoglobin 30.6 pg (28.0-33.3); Mean Corpuscular Volume 96.4 fL (83.0-100.0); Mean Platelet Volume 9.4 fL (9.4-12.4); Monocytes # 0.6 K/mcL (0.0-1.3); Monocytes % 6.6 %; Platelet Count 220 K/mcL (140-400); Red Blood Count 2.52 M/mcL (4.19-5.50); Red Cell Distribution Width 13.7 % (11.5-14.5); Segmented Neutrophils % 84.9 %
[2017-09-05 11:19] LABS: Calcium 8.5 mg/dL (8.6-10.3); Potassium 4.4 mEq/L (3.5-5.1)
[2017-09-05] MEDS: Cyanocobalamin (B-12) 1,000 MCG TABLET PO SCH (11:39)
[2017-09-05] MEDS: Folic Acid 1 MG TABLET PO SCH (11:39)
--- NOTE | 2017-09-05 12:50 | Cardiothoracic Progress Note ---
Date of Encounter: 09/05/17 Time of Encounter: 12:47 - Assessment and plan (1) Pleural effusion Current Visit: Yes Status: Acute The patient is improving with chest tube drainage. If the smaller tube fails to drain adequately, he can have insertion of a larger chest tube. - Subjective Interval history: The patient has no complaints. He feels better after yesterday's dialysis. Vital Signs, Last 4 Hours Temp Pulse Resp BP Pulse Ox 09/05/17 11:00 98.5 F 70 15 94/37 95 Weight 09/03/17 09/04/17 09/05/17 23:59 23:59 23:59 Weight 49.5 kg 48.3 kg 48.3 kg Lungs have slight decreased breath sounds at the right base. The chest tube is drained 400 mL of pus. Chest x-ray done this morning is improved. - Labs 09/05/17 10:44 09/05/17 10:44 Lab Results, Last 24 hours 09/05/17 09/05/17 10:44 10:44 WBC 8.3 Hgb 7.7 L Hct 24.3 L Plt Count 220 Sodium 134 L Potassium 4.4 Chloride 98 Carbon Dioxide 30 H BUN 27 H Creatinine 4.66 H Glucose 109 H Calcium 8.5 L Consult Discharge Plan - Plan Referrals: Ankit Stewart MD [Partnered Physician] - 09/10/17 1:00 pm
--- NOTE | 2017-09-05 18:31 | Internal Med Progress Note ---
Date of Encounter: 09/06/17 Time of Encounter: 11:00 - Assessment and plan (1) Loculated pleural effusion Current Visit: Yes Status: Acute Assessment and plan: -Patient clinically improving IV antibiotics for treatment of empyema -Chest x-ray showed right lower lung opacities with suspicion for loculated pleural effusion and CT of the chest show moderate complex partially loculated right pleural effusion. -IR consult at and thoracentesis was done and a total of 10 mL of purulent fluid was removed with recommendations for chest tube which was placed on -However not much drainage therefore cardiothoracic surgery was consult with recommendations for placement of a larger chest tube. -Patient has been afebrile and leukocytosis has resolved; will continue current management with IV Zosyn/vancomycin until sensitivities -Pulmonology following. Appreciate any further recommendations (2) Sepsis Current Visit: Yes Status: Acute Assessment and plan: -Resolved -Management as above Qualifiers: Sepsis type: sepsis due to unspecified organism Qualified Code(s): A41.9 - Sepsis, unspecified organism (3) Hypotension Current Visit: Yes Status: Acute Assessment and plan: -Blood pressures have been low throughout his admission; unsure of baseline. -Will continue to monitor Qualifiers: Hypotension type: hemodialysis-associated hypotension Qualified Code(s): I95.3 - Hypotension of hemodialysis (4) Generalized weakness Current Visit: Yes Status: Acute Assessment and plan: -Patient appears cachectic/malnourished with above loculated pleural effusion (5) Stage II carcinoma of colon Current Visit: No Status: Acute Assessment and plan: -Status post colostomy (6) Malnutrition Current Visit: Yes Status: Acute Assessment and plan: -BMI of 16.1 Qualifiers: Malnutrition type: protein-calorie malnutrition Protein-calorie malnutrition severity: severe Qualified Code(s): E43 - Unspecified severe protein-calorie malnutrition (7) DVT prophylaxis Current Visit: Yes Status: Acute Assessment and plan: Subcutaneous heparin - Subjective Interval history: Patient with continued generalized weakness. IR consult and purulent drainage removed with recommendations for chest tube which was placed on 09/03/17 Leukocytosis has resolved and patient has been afebrile; minimal drainage from chest tube - Constitutional Vitals: Temp Pulse Resp BP Pulse Ox 99.0 F 78 16 92/41 94 09/05/17 16:04 09/05/17 16:04 09/05/17 16:04 09/05/17 16:04 09/05/17 16:04 General appearance: Present: cachectic, disheveled, A&O X 3, no acute distress, underweight - Respiratory Respiratory exam: Present: CTAB. Absent: accessory muscle use, rales, rhonchi, wheezes - Cardiovascular Cardiovascular exam: Present: RRR, +S1, +S2. Absent: diastolic murmur, gallop, rubs, systolic murmur Internal Medicine: Result - Labs CBC & Chem 7: 09/06/17 04:44 09/06/17 04:44 Labs: Short CBC 09/05/17 Range/Units 10:44 WBC 8.3 (4.3-11.1) K/mcL Hgb 7.7 L (12.9-16.9) g/dL Hct 24.3 L (37.5-50.1) % Plt Count 220 (140-400) K/mcL Neutrophils # 7.0 (1.6-8.9) K/mcL BMP 09/05/17 10:44 Sodium 134 L Potassium 4.4 Chloride 98 Carbon Dioxide 30 H BUN 27 H Creatinine 4.66 H Glucose 109 H Calcium 8.5 L - ABG Interpretation ABG results: PT/INR, D-dimer PT 14.0 Seconds (9.4-12.1) H 09/03/17 08:07 - Impressions Impressions Chest X-Ray 09/05/17 02:39 IMPRESSION: Improved right basilar aeration following chest tube placement. D/ / Richard Stringer MD / Richard Stringer MD Interpreting Provider: Richard Stringer MD Consult Discharge Plan - Plan Referrals: Ankit Stewart MD [Partnered Physician] - 09/10/17 1:00 pm
[2017-09-06] MEDS: *HR* Heparin 5,000 UNIT/ML VIAL SQ SCH ×3 (01:05→18:54)
[2017-09-06 05:25] LABS: Basophils % 0.1 %; Eosinophils # 0.2 K/mcL (0.0-0.6); Immature Granulocytes % 0.7 % (0-4); Lymphocytes # 0.8 K/mcL (0.6-4.6); Lymphocytes % 10.6 %; Mean Corpuscular Hemoglobin 30.4 pg (28.0-33.3); Mean Corpuscular Volume 95.1 fL (83.0-100.0); Mean Platelet Volume 9.5 fL (9.4-12.4); Monocytes # 0.5 K/mcL (0.0-1.3); Platelet Count 195 K/mcL (140-400); Red Blood Count 2.63 M/mcL (4.19-5.50); Red Cell Distribution Width 13.7 % (11.5-14.5); Segmented Neutrophils % 79.6 %
[2017-09-06 05:44] LABS: Calcium 8.8 mg/dL (8.6-10.3); Potassium 4.8 mEq/L (3.5-5.1)
[2017-09-06] MEDS: Piperacillin/Tazobactam 3.375 GM in 0.9 % Sodium Chloride Mini Bag 100 ML IVPB SCH ×2 (06:15→18:54)
--- NOTE | 2017-09-06 07:33 | Electrocardiograph Report ---
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
--- NOTE | 2017-09-06 07:40 | Cardiothoracic Progress Note ---
Date of Encounter: 09/06/17 Time of Encounter: 07:38 - Assessment and plan (1) Pleural effusion Current Visit: Yes Status: Acute The patient is afebrile and his white blood cell count is normal. Chest x-ray is markedly improved. The patient is refusing to have a larger chest tube placed, but the smaller chest tube is taking care of the problem. We will continue to follow. - Subjective Interval history: The patient has no complaints. Vital Signs, Last 4 Hours Temp Pulse Resp BP Pulse Ox 09/06/17 07:04 97.9 F 79 18 104/46 94 09/06/17 03:52 97.9 F 75 18 98/44 96 09/06/17 03:46 97.9 F 75 18 98/44 96 Weight 09/04/17 09/05/17 09/06/17 23:59 23:59 23:59 Weight 48.3 kg 48.3 kg 52.673 kg Lungs are clear to percussion and auscultation. The chest tube has drained 500 mL of gross pus. Chest x-ray is markedly improved. - Labs 09/06/17 04:44 09/06/17 04:44 Lab Results, Last 24 hours 09/05/17 09/05/17 09/06/17 10:44 10:44 04:44 WBC 8.3 7.6 Hgb 7.7 L 8.0 L Hct 24.3 L 25.0 L Plt Count 220 195 Sodium 134 L Potassium 4.4 Chloride 98 Carbon Dioxide 30 H BUN 27 H Creatinine 4.66 H Glucose 109 H Calcium 8.5 L 09/06/17 04:44 WBC Hgb Hct Plt Count Sodium 133 L Potassium 4.8 Chloride 101 Carbon Dioxide 27 BUN 38 H Creatinine 6.00 H Glucose 110 H Calcium 8.8 Consult Discharge Plan - Plan Referrals: Ankit Stewart MD [Partnered Physician] - 09/10/17 1:00 pm
[2017-09-06] MEDS: Cyanocobalamin (B-12) 1,000 MCG TABLET PO SCH (09:18)
[2017-09-06] MEDS: Folic Acid 1 MG TABLET PO SCH (09:18)
[2017-09-06] MEDS ORDERED: 0.9 % Sodium Chloride 250 ML IVC PRN (09:29)
--- NOTE | 2017-09-06 10:23 | Nephrology Progress Note ---
Date of Encounter: 09/06/17 Time of Encounter: 09:45 - Assessment and Plan (1) ESRD (end stage renal disease) Current Visit: Yes Status: Chronic HD today, keeping MWF schedule.Orders given. Normal cortisol response. (2) Generalized weakness Current Visit: Yes Status: Acute Subjective Interval history: Sitting on edge of bed. States appetite improved. Denies SABA. CT to drainage. Caregiver at bedside. Objective - Vital Signs Vital signs: Vital Signs Temp Pulse Resp BP Pulse Ox 09/06/17 07:04 97.9 F 79 18 104/46 94 09/06/17 03:52 97.9 F 75 18 98/44 96 09/06/17 03:46 97.9 F 75 18 98/44 96 09/06/17 00:14 98.1 F 82 18 91/34 96 09/05/17 19:15 98.4 F 75 18 96/51 94 09/05/17 16:04 99.0 F 78 16 92/41 94 09/05/17 11:00 98.5 F 70 15 94/37 95 Intake and Output 09/05/17 09/06/17 09/06/17 23:59 07:59 15:59 Intake Total 160 / 160 480 / 480 120 / 120 Output Total 270 / 270 235 / 235 Balance -110 / -110 245 / 245 120 / 120 Intake: IV Fluids 100 / 100 Zosyn 3.375 GM In 0.9 % Sodium 100 / 100 Chloride (Mini-Bag +) 100 ML @ 25 mls/hr IVPB Q12HR [facility] Rx#: [id number] Oral 60 / 60 480 / 480 120 / 120 Output: Stool 150 / 150 175 / 175 Wound Drainage 60 / 60 60 / 60 Right Lateral Chest 60 / 60 60 / 60 Chest Tube Drainage 60 / 60 Right Anterior Chest 60 / 60 Other: Meal Dinner Breakfast Percent of Meal Consumed 30% 90% Weight 52.673 kg Patient Weight 09/06/17 23:59 Weight 52.673 kg - General Appearance General appearance: Present: appears started age, frail EENT: Present: mucous membranes moist Neck: Present: no JVD Respiratory: Present: clear Additional Comments: diminished Cardiology: Present: edema, regular rate, regular rhythm Additional Comments: 1+ shins down, improving Dialysis Vascular Access: Arteriovenous Fistula thrill: Yes bruit: Yes Gastrointestinal: Present: normoactive bowel sounds, no tenderness Additional Comments: colostomy Integumentary: Present: warm and dry Psychiatric: Present: mood/affect appropriate, cooperative - Lab 09/06/17 04:44 09/06/17 04:44 Most recent lab results Calcium 8.8 mg/dL (8.6-10.3) 09/06/17 04:44 Consult Discharge Plan - Plan Referrals: Ankit Stewart MD [Partnered Physician] - 09/10/17 1:00 pm
--- NOTE | 2017-09-06 17:13 | Internal Med Progress Note ---
Date of Encounter: 09/06/17 Time of Encounter: 11:00 - Assessment and plan (1) Loculated pleural effusion Current Visit: Yes Status: Acute Assessment and plan: -Patient clinically improving IV antibiotics for treatment of empyema -Chest x-ray showed right lower lung opacities with suspicion for loculated pleural effusion and CT of the chest show moderate complex partially loculated right pleural effusion. -IR consult at and thoracentesis was done and a total of 10 mL of purulent fluid was removed with recommendations for chest tube which was placed on -Patient with more drainage from chest tube -Continue current management with IV Zosyn/vancomycin until sensitivities -Cardiothoracic surgery following an appreciate recommendations with chest tube management (2) Sepsis Current Visit: Yes Status: Acute Assessment and plan: -Resolved -Management as above Qualifiers: Sepsis type: sepsis due to unspecified organism Qualified Code(s): A41.9 - Sepsis, unspecified organism (3) Hypotension Current Visit: Yes Status: Acute Assessment and plan: -Resolved; suspect secondary to sepsis which has also resolved -Blood pressures have been low throughout his admission; unsure of baseline. -Will continue to monitor Qualifiers: Hypotension type: hemodialysis-associated hypotension Qualified Code(s): I95.3 - Hypotension of hemodialysis (4) Generalized weakness Current Visit: Yes Status: Acute Assessment and plan: -Patient appears cachectic/malnourished with above loculated pleural effusion (5) Stage II carcinoma of colon Current Visit: No Status: Acute Assessment and plan: -Status post colostomy (6) Malnutrition Current Visit: Yes Status: Acute Assessment and plan: -BMI of 16.1 Qualifiers: Malnutrition type: protein-calorie malnutrition Protein-calorie malnutrition severity: severe Qualified Code(s): E43 - Unspecified severe protein-calorie malnutrition (7) DVT prophylaxis Current Visit: Yes Status: Acute Assessment and plan: Subcutaneous heparin - Subjective Interval history: Patient reports feeling better this morning Status post chest tube which was placed on 09/03/17 now with more drainage - Constitutional Vitals: Temp Pulse Resp BP Pulse Ox 98.3 F 86 16 105/53 97 09/06/17 16:23 09/06/17 16:23 09/06/17 16:23 09/06/17 16:23 09/06/17 16:23 General appearance: Present: cachectic, disheveled, A&O X 3, no acute distress, underweight - Respiratory Respiratory exam: Present: CTAB. Absent: accessory muscle use, rales, rhonchi, wheezes - Cardiovascular Cardiovascular exam: Present: RRR, +S1, +S2. Absent: diastolic murmur, gallop, rubs, systolic murmur - Skin Skin exam: Present: pallor Internal Medicine: Result - Labs CBC & Chem 7: 09/06/17 04:44 09/06/17 04:44 Labs: Short CBC 09/06/17 Range/Units 04:44 WBC 7.6 (4.3-11.1) K/mcL Hgb 8.0 L (12.9-16.9) g/dL Hct 25.0 L (37.5-50.1) % Plt Count 195 (140-400) K/mcL Neutrophils # 6.0 (1.6-8.9) K/mcL BMP 09/06/17 04:44 Sodium 133 L Potassium 4.8 Chloride 101 Carbon Dioxide 27 BUN 38 H Creatinine 6.00 H Glucose 110 H Calcium 8.8 - ABG Interpretation ABG results: PT/INR, D-dimer PT 14.0 Seconds (9.4-12.1) H 09/03/17 08:07 - Impressions Impressions Chest X-Ray 09/06/17 00:01 IMPRESSION: Small right pleural effusion, slightly increased from yesterday's exam. Pigtail drainage catheter unchanged in position. No pneumothorax. Persistent consolidation at the right lung base. D/ / 09/06/2017 07:41:31 Ronak Bean MD / alec Interpreting Provider: Ronak Bean MD Consult Discharge Plan - Plan Referrals: Ankit Stewart MD [Partnered Physician] - 09/10/17 1:00 pm
[2017-09-06] MEDS ORDERED: Vancomycin 500 MG in 0.9 % Sodium Chloride Mini Bag 100 ML IVPB ONE (18:00)
[2017-09-07] MEDS: *HR* Heparin 5,000 UNIT/ML VIAL SQ SCH ×3 (00:31→15:15)
[2017-09-07 04:29] LABS: Basophils % 0.2 %; Eosinophils # 0.2 K/mcL (0.0-0.6); Eosinophils % 2.4 %; Hematocrit 27.2 % (37.5-50.1); Hemoglobin 8.8 g/dL (12.9-16.9); Lymphocytes # 0.9 K/mcL (0.6-4.6); Lymphocytes % 10.3 %; Mean Corpuscular HGB Conc 32.4 g/dL (31.6-35.5); Mean Corpuscular Hemoglobin 30.7 pg (28.0-33.3); Mean Corpuscular Volume 94.8 fL (83.0-100.0); Mean Platelet Volume 9.2 fL (9.4-12.4); Monocytes # 0.6 K/mcL (0.0-1.3); Monocytes % 6.9 %; Neutrophils # 6.8 K/mcL (1.6-8.9); Platelet Count 224 K/mcL (140-400); Red Blood Count 2.87 M/mcL (4.19-5.50); Red Cell Distribution Width 13.7 % (11.5-14.5); Segmented Neutrophils % 79.2 %
[2017-09-07 04:37] LABS: Calcium 8.4 mg/dL (8.6-10.3); Potassium 5.1 mEq/L (3.5-5.1)
[2017-09-07] MEDS: Piperacillin/Tazobactam 3.375 GM in 0.9 % Sodium Chloride Mini Bag 100 ML IVPB SCH ×2 (06:12→17:24)
[2017-09-07] MEDS: Cyanocobalamin (B-12) 1,000 MCG TABLET PO SCH (07:53)
[2017-09-07] MEDS: Folic Acid 1 MG TABLET PO SCH (07:53)
--- NOTE | 2017-09-07 09:26 | Nephrology Progress Note ---
Date of Encounter: 09/07/17 Time of Encounter: 08:50 - Assessment and Plan (1) ESRD (end stage renal disease) Current Visit: Yes Status: Chronic No HD today, keeping MWF schedule. Normal cortisol response. (2) Generalized weakness Current Visit: Yes Status: Acute Subjective Interval history: Laying in bed, ate breakfast. Denies SABA. CT to drainage. Objective - Vital Signs Vital signs: Vital Signs Temp Pulse Resp BP Pulse Ox 09/07/17 08:04 98.2 F 95 18 93/56 97 09/07/17 08:00 96 09/07/17 04:22 98.3 F 76 18 110/61 96 09/07/17 00:26 98.3 F 80 17 96/53 95 09/06/17 19:51 98.6 F 86 17 114/53 94 09/06/17 19:43 114/53 09/06/17 16:23 98.3 F 86 16 105/53 97 09/06/17 14:30 97.6 F 18 95/50 09/06/17 14:15 93/49 09/06/17 14:00 85/49 09/06/17 13:45 86/47 09/06/17 13:30 89/47 09/06/17 13:15 89/41 09/06/17 13:00 91/49 09/06/17 12:45 93/46 09/06/17 12:30 91/44 09/06/17 12:15 98/45 09/06/17 12:00 98/48 09/06/17 11:45 98/50 09/06/17 11:30 97.7 F 18 97/48 Intake and Output 09/06/17 09/07/17 09/07/17 23:59 07:59 15:59 Intake Total 100 / 100 800 / 800 360 / 360 Output Total 150 / 150 262 / 262 52 / 52 Balance -50 / -50 538 / 538 308 / 308 Intake: IV Fluids 100 / 100 Zosyn 3.375 GM In 0.9 % Sodium 100 / 100 Chloride (Mini-Bag +) 100 ML @ 25 mls/hr IVPB Q12HR [facility] Rx#: [id number] Oral 0 / 0 800 / 800 360 / 360 Output: Urine 0 / 0 0 / 0 Stool 150 / 150 250 / 250 50 / 50 Wound Drainage Right Lateral Chest Chest Tube Drainage Right Anterior Chest Other: Meal Breakfast Percent of Meal Consumed 100% Stool Characteristics Normal for Patient Stool Color Brown Weight 53 kg Patient Weight 09/07/17 23:59 Weight 53 kg - General Appearance General appearance: Present: well-developed, appears started age EENT: Present: mucous membranes moist Neck: Present: no JVD Respiratory: Present: clear Cardiology: Present: edema, regular rate, regular rhythm Additional Comments: ankle/pedal Gastrointestinal: Present: normoactive bowel sounds, no tenderness Additional Comments: colostomy Integumentary: Present: warm and dry Neurologic: Present: alert and oriented x3 Psychiatric: Present: mood/affect appropriate, cooperative - Lab 09/07/17 04:01 09/07/17 04:01 Most recent lab results Calcium 8.4 mg/dL (8.6-10.3) L 09/07/17 04:01 Consult Discharge Plan - Plan Referrals: Ankit Stewart MD [Partnered Physician] - 09/10/17 1:00 pm
--- NOTE | 2017-09-07 12:10 | Cardiothoracic Progress Note ---
Date of Encounter: 09/07/17 Time of Encounter: 12:10 - Subjective Procedure(s) Performed: Patient seen. Expressed no interest in intervention. Doing well. Good appetite and no complaints. Will be available to assist in managment as needed Clinical Data, last 8 Hours Output, Chest Tube Drainage 2 Amount [Right Anterior Chest] Output, Chest Tube Drainage 2 Amount [Right Anterior Chest] Output, Urine Amount 0 Weight 09/05/17 09/06/17 09/07/17 23:59 23:59 23:59 Weight 48.3 kg 52.673 kg 53 kg - Labs 09/07/17 04:01 09/07/17 04:01 Lab Results, Last 24 hours 09/07/17 09/07/17 04:01 04:01 WBC 8.6 Hgb 8.8 L Hct 27.2 L Plt Count 224 Sodium 138 Potassium 5.1 Chloride 105 Carbon Dioxide 29 BUN 18 Creatinine 3.93 H Glucose 88 Calcium 8.4 L Consult Discharge Plan - Plan Referrals: Ankit Stewart MD [Partnered Physician] - 09/10/17 1:00 pm
--- NOTE | 2017-09-07 19:12 | Internal Med Progress Note ---
Date of Encounter: 09/07/17 Time of Encounter: 11:00 - Assessment and plan (1) Loculated pleural effusion Current Visit: Yes Status: Acute Assessment and plan: -Patient clinically improving IV antibiotics for treatment of empyema -Chest x-ray showed right lower lung opacities with suspicion for loculated pleural effusion and CT of the chest show moderate complex partially loculated right pleural effusion. -IR consult at and thoracentesis was done and a total of 10 mL of purulent fluid was removed with recommendations for chest tube which was placed on Patient still with continued drainage from chest tube -Continue current management with IV Zosyn/vancomycin until sensitivities -Cardiothoracic surgery following an appreciate recommendations with chest tube management (2) Sepsis Current Visit: Yes Status: Acute Assessment and plan: -Resolved -Management as above Qualifiers: Sepsis type: sepsis due to unspecified organism Qualified Code(s): A41.9 - Sepsis, unspecified organism (3) Hypotension Current Visit: Yes Status: Acute Assessment and plan: -Resolved; suspect secondary to sepsis which has also resolved -Blood pressures have been low throughout his admission; unsure of baseline. -Will continue to monitor Qualifiers: Hypotension type: hemodialysis-associated hypotension Qualified Code(s): I95.3 - Hypotension of hemodialysis (4) Generalized weakness Current Visit: Yes Status: Acute Assessment and plan: -Patient appears cachectic/malnourished with above loculated pleural effusion (5) Stage II carcinoma of colon Current Visit: No Status: Acute Assessment and plan: -Status post colostomy (6) Malnutrition Current Visit: Yes Status: Acute Assessment and plan: -BMI of 16.1 Qualifiers: Malnutrition type: protein-calorie malnutrition Protein-calorie malnutrition severity: severe Qualified Code(s): E43 - Unspecified severe protein-calorie malnutrition (7) DVT prophylaxis Current Visit: Yes Status: Acute Assessment and plan: Subcutaneous heparin - Subjective Interval history: Patient reports feeling better this morning Status post chest tube which was placed on 09/03/17; patient with continued drainage - Constitutional Vitals: Temp Pulse Resp BP Pulse Ox 98.2 F 84 18 104/63 96 09/07/17 16:08 09/07/17 16:08 09/07/17 16:08 09/07/17 16:08 09/07/17 16:08 General appearance: Present: cachectic, disheveled, A&O X 3, no acute distress, underweight - Respiratory Respiratory exam: Absent: accessory muscle use, rales, rhonchi, wheezes - Cardiovascular Cardiovascular exam: Present: RRR, +S1, +S2. Absent: diastolic murmur, gallop, rubs, systolic murmur Internal Medicine: Result - Labs CBC & Chem 7: 09/07/17 04:01 09/07/17 04:01 Labs: Short CBC 09/07/17 Range/Units 04:01 WBC 8.6 (4.3-11.1) K/mcL Hgb 8.8 L (12.9-16.9) g/dL Hct 27.2 L (37.5-50.1) % Plt Count 224 (140-400) K/mcL Neutrophils # 6.8 (1.6-8.9) K/mcL BMP 09/07/17 04:01 Sodium 138 Potassium 5.1 Chloride 105 Carbon Dioxide 29 BUN 18 Creatinine 3.93 H Glucose 88 Calcium 8.4 L - ABG Interpretation ABG results: PT/INR, D-dimer PT 14.0 Seconds (9.4-12.1) H 09/03/17 08:07 - Impressions Impressions Chest X-Ray 09/06/17 00:01 IMPRESSION: Small right pleural effusion, slightly increased from yesterday's exam. Pigtail drainage catheter unchanged in position. No pneumothorax. Persistent consolidation at the right lung base. D/ / 09/06/2017 07:41:31 Ronak Bean MD / alec Interpreting Provider: Ronak Bean MD Consult Discharge Plan - Plan Referrals: Ankit Stewart MD [Partnered Physician] - 09/10/17 1:00 pm
[2017-09-08] MEDS: *HR* Heparin 5,000 UNIT/ML VIAL SQ SCH ×3 (00:56→17:55)
[2017-09-08 05:19] LABS: Basophils % 0.3 %; Eosinophils # 0.2 K/mcL (0.0-0.6); Eosinophils % 2.8 %; Hematocrit 27.8 % (37.5-50.1); Hemoglobin 8.7 g/dL (12.9-16.9); Immature Granulocytes % 1.7 % (0-4); Immature Platelets 1.9 % (1.1-6.1); Lymphocytes # 0.9 K/mcL (0.6-4.6); Lymphocytes % 12.2 %; Mean Corpuscular HGB Conc 31.3 g/dL (31.6-35.5); Mean Corpuscular Hemoglobin 30.1 pg (28.0-33.3); Mean Corpuscular Volume 96.2 fL (83.0-100.0); Mean Platelet Volume 9.1 fL (9.4-12.4); Monocytes # 0.6 K/mcL (0.0-1.3); Monocytes % 8.4 %; Neutrophils # 5.6 K/mcL (1.6-8.9); Nucleated Red Blood Cells 0.5 /100 WBC (0); Platelet Count 267 K/mcL (140-400); Red Blood Count 2.89 M/mcL (4.19-5.50); Segmented Neutrophils % 74.6 %
[2017-09-08 05:20] LABS: Calcium 8.9 mg/dL (8.6-10.3); Potassium 5.4 mEq/L (3.5-5.1)
[2017-09-08] MEDS: Piperacillin/Tazobactam 3.375 GM in 0.9 % Sodium Chloride Mini Bag 100 ML IVPB SCH ×2 (06:28→17:55)
--- NOTE | 2017-09-08 08:32 | Cardiothoracic Progress Note ---
Date of Encounter: 09/08/17 Time of Encounter: 08:30 - Subjective Procedure(s) Performed: Patient seen and examined. Sitting up and the eating breakfast. No new complaints. Again patient conveyed he is not interested in any further intervention. Will follow and be available for assistance in management if needed. Vital Signs, Last 4 Hours Temp Pulse Resp BP Pulse Ox 09/08/17 07:04 97.6 F 66 16 124/69 98 09/08/17 05:24 97.6 F 75 16 113/68 98 Clinical Data, last 8 Hours Output, Chest Tube Drainage 0 Amount [Right Anterior Chest] Weight 09/06/17 09/07/17 09/08/17 23:59 23:59 23:59 Weight 52.673 kg 53 kg - Labs 09/08/17 04:25 09/08/17 04:25 Lab Results, Last 24 hours 09/08/17 09/08/17 04:25 04:25 WBC 7.5 Hgb 8.7 L Hct 27.8 L Plt Count 267 Sodium 138 Potassium 5.4 H Chloride 106 Carbon Dioxide 28 BUN 28 H Creatinine 5.61 H Glucose 76 Calcium 8.9 Consult Discharge Plan - Plan Referrals: Ankit Stewart MD [Partnered Physician] - 09/10/17 1:00 pm
--- NOTE | 2017-09-08 08:40 | Nephrology Progress Note ---
Date of Encounter: 09/08/17 Time of Encounter: 08:10 - Assessment and Plan (1) ESRD (end stage renal disease) Current Visit: Yes Status: Chronic No HD today, keeping MWF schedule. (2) Generalized weakness Current Visit: Yes Status: Acute Subjective Interval history: Sitting up in bed, eating breakfast. No new complaints. Objective - Vital Signs Vital signs: Vital Signs Temp Pulse Resp BP Pulse Ox 09/08/17 07:04 97.6 F 66 16 124/69 98 09/08/17 05:24 97.6 F 75 16 113/68 98 09/08/17 00:34 97.6 F 80 16 128/59 97 09/07/17 20:19 98.2 F 80 16 99/59 95 09/07/17 16:08 98.2 F 84 18 104/63 96 09/07/17 12:20 98.3 F 96 18 106/66 96 Intake and Output 09/07/17 09/08/17 09/08/17 23:59 07:59 15:59 Intake Total 100 / 100 Output Total 400 / 400 200 / 200 Balance -300 / -300 -200 / -200 Intake: IV Fluids 100 / 100 Zosyn 3.375 GM In 0.9 % Sodium 100 / 100 Chloride (Mini-Bag +) 100 ML @ 25 mls/hr IVPB Q12HR [facility] Rx#: [id number] Output: Urine 0 / 0 Stool 400 / 400 Gastric Drainage 200 / 200 Chest Tube Drainage 0 / 0 Right Anterior Chest 0 / 0 Other: Meal Dinner Percent of Meal Consumed 50% Stool Consistency liquid Stool Characteristics Normal for Patient Stool Color Brown Green - General Appearance General appearance: Present: appears started age EENT: Present: mucous membranes moist Neck: Present: no JVD Respiratory: Present: clear Additional Comments: diminished Cardiology: Present: edema, regular rate, regular rhythm Additional Comments: 1-2+ pitting, shins down. Gastrointestinal: Present: normoactive bowel sounds, no tenderness Additional Comments: colostomy Integumentary: Present: warm and dry Neurologic: Present: alert and oriented x3 - Lab 09/08/17 04:25 09/08/17 04:25 Most recent lab results Calcium 8.9 mg/dL (8.6-10.3) 09/08/17 04:25 Consult Discharge Plan - Plan Referrals: Ankit Stewart MD [Partnered Physician] - 09/10/17 1:00 pm
[2017-09-08] MEDS: Cyanocobalamin (B-12) 1,000 MCG TABLET PO SCH (09:12)
[2017-09-08] MEDS: Folic Acid 1 MG TABLET PO SCH (09:12)
[2017-09-08] MEDS ORDERED: Aminoglycoside Consult 1 EACH MC ONE (14:58)
--- NOTE | 2017-09-08 19:32 | Internal Med Progress Note ---
Date of Encounter: 09/09/17 Time of Encounter: 11:00 - Assessment and plan (1) Loculated pleural effusion Current Visit: Yes Status: Acute Assessment and plan: -Patient clinically improving IV antibiotics for treatment of empyema -Chest x-ray showed right lower lung opacities with suspicion for loculated pleural effusion and CT of the chest show moderate complex partially loculated right pleural effusion. -IR consult at and thoracentesis was done and a total of 10 mL of purulent fluid was removed with recommendations for chest tube which was placed on -Patient without much drainage from chest tube overnight -Repeat CT of chest shows right pleural effusion with moderate loculation in addition to a large loculated adjacent area next to the right mediastinum -Continue current management with IV Zosyn/vancomycin until sensitivities -Cardiothoracic surgery following an appreciate recommendations with chest tube management (2) Sepsis Current Visit: Yes Status: Acute Assessment and plan: -Resolved -Continue IV antibiotics Qualifiers: Sepsis type: sepsis due to unspecified organism Qualified Code(s): A41.9 - Sepsis, unspecified organism (3) Hypotension Current Visit: Yes Status: Acute Assessment and plan: -Resolved; suspect secondary to sepsis which has also resolved -Will continue to monitor Qualifiers: Hypotension type: hemodialysis-associated hypotension Qualified Code(s): I95.3 - Hypotension of hemodialysis (4) Generalized weakness Current Visit: Yes Status: Acute Assessment and plan: -Patient appears cachectic/malnourished with above loculated pleural effusion (5) Stage II carcinoma of colon Current Visit: No Status: Acute Assessment and plan: -Status post colostomy (6) Malnutrition Current Visit: Yes Status: Acute Assessment and plan: -BMI of 16.1 Qualifiers: Malnutrition type: protein-calorie malnutrition Protein-calorie malnutrition severity: severe Qualified Code(s): E43 - Unspecified severe protein-calorie malnutrition (7) DVT prophylaxis Current Visit: Yes Status: Acute Assessment and plan: Subcutaneous heparin - Subjective Interval history: Patient was not much drainage from chest tube overnight Patient has been afebrile and without leukocytosis Status post chest tube which was placed on 09/03/17; on IV antibiotics - Constitutional Vitals: Temp Pulse Resp BP Pulse Ox 98.1 F 84 16 119/61 99 09/08/17 19:18 09/08/17 19:18 09/08/17 19:18 09/08/17 19:18 09/08/17 19:18 General appearance: Present: cachectic, disheveled, A&O X 3, no acute distress, underweight - Respiratory Respiratory exam: Present: CTAB. Absent: accessory muscle use, rales, rhonchi, wheezes - Cardiovascular Cardiovascular exam: Present: RRR, +S1, +S2. Absent: diastolic murmur, gallop, rubs, systolic murmur - Extremities Exam Extremities exam: Absent: pedal edema - Skin Skin exam: Present: normal color Internal Medicine: Result - Labs CBC & Chem 7: 09/08/17 04:25 09/09/17 06:41 Labs: Short CBC 09/08/17 Range/Units 04:25 WBC 7.5 (4.3-11.1) K/mcL Hgb 8.7 L (12.9-16.9) g/dL Hct 27.8 L (37.5-50.1) % Plt Count 267 (140-400) K/mcL Neutrophils # 5.6 (1.6-8.9) K/mcL BMP 09/08/17 04:25 Sodium 138 Potassium 5.4 H Chloride 106 Carbon Dioxide 28 BUN 28 H Creatinine 5.61 H Glucose 76 Calcium 8.9 - ABG Interpretation ABG results: PT/INR, D-dimer PT 14.0 Seconds (9.4-12.1) H 09/03/17 08:07 - Impressions Impressions Chest CT 09/08/17 08:58 IMPRESSION: 1. Indwelling pleurodesis catheter in the right hemithorax terminal end in the right lower hemithorax posterolaterally. 2. Right pleural effusion, moderate with loculation. There is a large loculation adjacent to the right mediastinum. 3. Areas of consolidation in the right lower lobe with atelectasis. 4. Left effusion and compressive atelectasis at the left base. 5. Atherosclerotic disease. 6. Small appearing atrophic kidneys. On reconstructed images there are parenchymal calcifications in the right kidney with a calcification in the right renal pelvis. RECOMMENDATIONS: Cavitary lesion in the right hemithorax is of concern. Consideration may be given to PET-CT imaging for further assessment. D/ / 09/08/2017 10:30:08 Michela Schwartz MD / alec Interpreting Provider: Michela Schwartz MD Consult Discharge Plan - Plan Referrals: Ankit Stewart MD [Partnered Physician] - 09/10/17 1:00 pm
[2017-09-09] MEDS: *HR* Heparin 5,000 UNIT/ML VIAL SQ SCH ×4 (01:20→23:57)
[2017-09-09] MEDS: Piperacillin/Tazobactam 3.375 GM in 0.9 % Sodium Chloride Mini Bag 100 ML IVPB SCH (05:37)
[2017-09-09 07:48] LABS: Calcium 8.3 mg/dL (8.6-10.3); Potassium 6.1 mEq/L (3.5-5.1)
[2017-09-09] MEDS: Folic Acid 1 MG TABLET PO SCH (08:05)
[2017-09-09] MEDS: Cyanocobalamin (B-12) 1,000 MCG TABLET PO SCH (08:05)
[2017-09-09] MEDS ORDERED: 0.9 % Sodium Chloride 250 ML IVC PRN (08:16)
--- NOTE | 2017-09-09 08:16 | Nephrology Progress Note ---
Date of Encounter: 09/09/17 Time of Encounter: 08:14 - Assessment and Plan (1) ESRD (end stage renal disease) Current Visit: Yes Status: Chronic The patient will undergo his usual dialysis today. Potassium yesterday was 5.4 so he will be dialyzed on a 2K bath. (2) Generalized weakness Current Visit: Yes Status: Acute (3) Loculated pleural effusion Current Visit: Yes Status: Acute Subjective Interval history: Patient denies any new complaints. He denies any chest pain or shortness of breath. Chest tube remains in place. Most recent CAT scan results have been noted. There is suggestion of a cavitary lesion and a recommendation for a PET scan. Patient is scheduled for his usual dialysis today. Blood pressure seems better in general. Objective - Vital Signs Vital signs: Vital Signs Temp Pulse Resp BP Pulse Ox 09/09/17 07:00 98.5 F 75 14 116/58 98 09/08/17 23:29 98.1 F 73 16 116/55 97 09/08/17 19:18 98.1 F 84 16 119/61 99 09/08/17 16:00 97.7 F 76 16 116/67 98 09/08/17 12:51 97.7 F 87 16 101/63 98 Intake and Output 09/08/17 09/09/17 09/09/17 23:59 07:59 15:59 Intake Total 220 / 220 Output Total 500 / 500 580 / 580 Balance -280 / -280 -580 / -580 Intake: IV Fluids 100 / 100 Zosyn 3.375 GM In 0.9 % Sodium 100 / 100 Chloride (Mini-Bag +) 100 ML @ 25 mls/hr IVPB Q12HR [facility] Rx#: [id number] Oral 120 / 120 Output: Stool 500 / 500 Wound Drainage 10 / 10 Right Lateral Chest 10 / 10 Chest Tube Drainage 570 / 570 Right Anterior Chest 570 / 570 Other: Meal Dinner Percent of Meal Consumed 100% Stool Consistency liquid Stool Characteristics Normal for Patient Stool Color Green Weight 52.163 kg - General Appearance Exam: Patient is alert and oriented. He appears chronically ill. He is cachectic. A right chest tube is in place. Lungs diminished breath sounds bilaterally. Heart regular rate and rhythm with a 2/6 talk ejection murmur. Abdomen is benign. Colostomy is present. There is much less lower extremity swelling. There is a functioning AV fistula in the left upper extremity. - Lab 09/08/17 04:25 09/09/17 06:41 Most recent lab results Calcium 8.3 mg/dL (8.6-10.3) L 09/09/17 06:41 Consult Discharge Plan - Plan Referrals: Ankit Stewart MD [Partnered Physician] - 09/10/17 1:00 pm
[2017-09-09 08:27] LABS: Basophils # 0.1 K/mcL (0.0-0.2); Basophils % 0.7 %; Eosinophils # 0.2 K/mcL (0.0-0.6); Eosinophils % 2.7 %; Hematocrit 28.7 % (37.5-50.1); Immature Granulocytes % 1.5 % (0-4); Lymphocytes # 0.8 K/mcL (0.6-4.6); Lymphocytes % 11.7 %; Mean Corpuscular HGB Conc 31.4 g/dL (31.6-35.5); Mean Corpuscular Hemoglobin 30.7 pg (28.0-33.3); Monocytes # 0.5 K/mcL (0.0-1.3); Monocytes % 7.1 %; Neutrophils # 5.5 K/mcL (1.6-8.9); Platelet Count 235 K/mcL (140-400); Red Blood Count 2.93 M/mcL (4.19-5.50); Red Cell Distribution Width 14.5 % (11.5-14.5); Segmented Neutrophils % 76.3 %
--- NOTE | 2017-09-09 09:33 | Cardiothoracic Progress Note ---
Date of Encounter: 09/09/17 Time of Encounter: 09:44 - Assessment and plan (1) Loculated pleural effusion Current Visit: Yes Status: Acute Although the patient has a persistent right posteromedial loculated fluid collection, he remains afebrile, is breathing comfortably, and has no back or chest pain. The cultures were negative. I believe that the chest tube could be removed and the patient discharged home. I told the patient and his caregiver that should he develop any chills, fever, back pain, or chest pain, that he should be reevaluated at [facility] emergency department. Chest tube was removed and I discussed the discharge plans with the hospitalist. The assessment and plan as outlined above was discussed with the patient and/or family members who expressed understanding and agreement. All questions were answered. - Subjective Interval history: The patient is resting comfortably in his hospital bed. He is breathing without difficulty and has no complaints. Vital Signs, Last 4 Hours Temp Pulse Resp BP Pulse Ox 09/09/17 07:00 98.5 F 75 14 116/58 98 Oxgyen Flow Rate Oxygen Flow Rate (LPM) 2 Clinical Data, last 8 Hours Output, Chest Tube Drainage 550 Amount [Right Anterior Chest] Output, Chest Tube Drainage 10 Amount [Right Anterior Chest] Output, Chest Tube Drainage 10 Amount [Right Anterior Chest] Weight 09/07/17 09/08/17 09/09/17 23:59 23:59 23:59 Weight 53 kg 52.163 kg - Physical Examination General: Conversant, No Apparent Distress Neck: No JVD, Normal carotid pulses Cardiac: Reg Rate and Rhythm, Normal S1 and S2, No Murmur Incision: No signs of infection, Dry/intact dressing Chest tubes: Minimal drainage, Other (No air leak.) Lungs: Normal Breath Sounds, No Wheeze, Rales, Rhonchi Neuro: Alert and responsive, No focal deficits noted Vascular: Normal capillary refill Extremities: No Clubbing, No Cyanosis, No Edema - Labs 09/09/17 06:41 09/09/17 06:41 Lab Results, Last 24 hours 09/09/17 09/09/17 06:41 06:41 WBC 7.2 Hgb 9.0 L Hct 28.7 L Plt Count 235 Sodium 140 Potassium 6.1 H Chloride 106 Carbon Dioxide 22 L BUN 36 H Creatinine 6.78 H Glucose 68 L Calcium 8.3 L Consult Discharge Plan - Plan Referrals: Ankit Stewart MD [Partnered Physician] - 09/10/17 1:00 pm
[2017-09-09] MEDS ORDERED: 0.9 % Sodium Chloride 1,000 ML ONE (12:45)
--- NOTE | 2017-09-09 19:31 | Internal Med Progress Note ---
Date of Encounter: 09/09/17 Time of Encounter: 11:00 - Assessment and plan (1) Loculated pleural effusion Current Visit: Yes Status: Acute Assessment and plan: -Patient has been afebrile without leukocytosis and clinically improve on room air therefore chest tube was removed per cardiothoracic recommendations IV antibiotics have been Deescalated to Augmentin (2) Sepsis Current Visit: Yes Status: Acute Assessment and plan: -Resolved -Now on oral antibiotics Qualifiers: Sepsis type: sepsis due to unspecified organism Qualified Code(s): A41.9 - Sepsis, unspecified organism (3) Hypotension Current Visit: Yes Status: Acute Assessment and plan: -Resolved; suspect secondary to sepsis which has also resolved -Will continue to monitor Qualifiers: Hypotension type: hemodialysis-associated hypotension Qualified Code(s): I95.3 - Hypotension of hemodialysis (4) Generalized weakness Current Visit: Yes Status: Acute Assessment and plan: -Patient appears cachectic/malnourished with above loculated pleural effusion -Physical therapy/OT consult for placement (5) Stage II carcinoma of colon Current Visit: No Status: Acute Assessment and plan: -Status post colostomy (6) Malnutrition Current Visit: Yes Status: Acute Assessment and plan: -BMI of 16.1 Qualifiers: Malnutrition type: protein-calorie malnutrition Protein-calorie malnutrition severity: severe Qualified Code(s): E43 - Unspecified severe protein-calorie malnutrition (7) DVT prophylaxis Current Visit: Yes Status: Acute Assessment and plan: Subcutaneous heparin - Subjective Interval history: Patient has been afebrile and without leukocytosis with decreased drainage from chest tube which was removed per cardiothoracic recommendations PT OT consult for ECF placement for strengthening and conditioning - Constitutional Vitals: Temp Pulse Resp BP Pulse Ox 97.4 F L 71 18 99/58 96 09/09/17 19:05 09/09/17 10:59 09/09/17 19:05 09/09/17 19:05 09/09/17 10:59 General appearance: Present: cachectic, disheveled, A&O X 3, no acute distress, underweight Internal Medicine: Result - Labs CBC & Chem 7: 09/09/17 06:41 09/09/17 06:41 Labs: Short CBC 09/09/17 Range/Units 06:41 WBC 7.2 (4.3-11.1) K/mcL Hgb 9.0 L (12.9-16.9) g/dL Hct 28.7 L (37.5-50.1) % Plt Count 235 (140-400) K/mcL Neutrophils # 5.5 (1.6-8.9) K/mcL BMP 09/09/17 06:41 Sodium 140 Potassium 6.1 H Chloride 106 Carbon Dioxide 22 L BUN 36 H Creatinine 6.78 H Glucose 68 L Calcium 8.3 L - ABG Interpretation ABG results: PT/INR, D-dimer PT 14.0 Seconds (9.4-12.1) H 09/03/17 08:07 Consult Discharge Plan - Plan Referrals: Ankit Stewart MD [Partnered Physician] - 09/10/17 1:00 pm
[2017-09-09] MEDS: Amoxicillin/Clavulanate 500 MG TABLET PO SCH (21:40)
[2017-09-10 06:13] LABS: Basophils % 0.4 %; Eosinophils # 0.2 K/mcL (0.0-0.6); Eosinophils % 2.1 %; Hematocrit 32.9 % (37.5-50.1); Hemoglobin 10.3 g/dL (12.9-16.9); Immature Granulocytes % 1.1 % (0-4); Lymphocytes # 1.8 K/mcL (0.6-4.6); Lymphocytes % 18.6 %; Mean Corpuscular HGB Conc 31.3 g/dL (31.6-35.5); Mean Corpuscular Volume 95.9 fL (83.0-100.0); Mean Platelet Volume 8.9 fL (9.4-12.4); Monocytes # 0.7 K/mcL (0.0-1.3); Monocytes % 6.7 %; Neutrophils # 7.1 K/mcL (1.6-8.9); Platelet Count 317 K/mcL (140-400); Red Blood Count 3.43 M/mcL (4.19-5.50); Red Cell Distribution Width 15.5 % (11.5-14.5); Segmented Neutrophils % 71.1 %
[2017-09-10 06:29] LABS: Calcium 8.8 mg/dL (8.6-10.3); Potassium 4.8 mEq/L (3.5-5.1)
--- NOTE | 2017-09-10 07:49 | Nephrology Progress Note ---
Date of Encounter: 09/10/17 Time of Encounter: 07:47 - Assessment and Plan (1) ESRD (end stage renal disease) Current Visit: Yes Status: Chronic Patient is stable from a renal perspective. His edema is much better. Vital signs are stable. Chest tube is been removed and he seems to be breathing without any difficulty. (2) Generalized weakness Current Visit: Yes Status: Acute (3) Loculated pleural effusion Current Visit: Yes Status: Acute Subjective Interval history: Patient denies any new complaints. He denies any chest pain or shortness of breath. The chest tube has been removed. The patient underwent dialysis yesterday without incident. Vital signs are stable. Objective - Vital Signs Vital signs: Vital Signs Temp Pulse Resp BP Pulse Ox 09/10/17 07:38 97.9 F 88 13 107/65 97 09/10/17 04:53 98.5 F 84 16 103/58 95 09/10/17 00:32 98.1 F 84 16 106/56 97 09/09/17 19:28 97.8 F 105 16 96/55 97 09/09/17 19:05 97.4 F L 18 99/58 09/09/17 18:30 99/52 09/09/17 18:15 101/50 09/09/17 18:00 96/46 09/09/17 17:45 98/52 09/09/17 17:30 97/51 09/09/17 17:15 103/51 09/09/17 17:00 96/53 09/09/17 16:45 97/54 09/09/17 16:30 90/52 09/09/17 16:15 97/54 09/09/17 16:00 102/54 09/09/17 15:45 109/58 09/09/17 15:30 97.7 F 18 112/56 09/09/17 10:59 97.9 F 71 14 96/55 96 Intake and Output 09/09/17 09/09/17 09/10/17 15:59 23:59 07:59 Intake Total 1200 / 1200 0 / 0 Output Total 2600 / 2600 200 / 200 Balance 1200 / 1200 -2600 / -2600 -200 / -200 Intake: Oral 600 / 600 0 / 0 Intake, Rinseback and Flushes 600 / 600 Output: Urine 0 / 0 Stool 200 / 200 Total Dialysis (HD) Output 2600 / 2600 Other: Meal Lunch Percent of Meal Consumed 100% Weight 52.163 kg 50.802 kg Hemodialysis Net Fluid Removed 213 2000 (mL) Patient Weight 09/10/17 23:59 Weight 50.802 kg - General Appearance Exam: Patient is alert and oriented. He is in no acute distress. He appears chronically ill and cachectic. Lungs diminished breath sounds. Heart regular rate and rhythm with a 2/6 talk ejection murmur. Abdomen is benign. A colostomy is present. There is minimal lower extremity swelling. There is a functioning AV fistula in the left upper extremity. - Lab 09/10/17 05:21 09/10/17 05:21 Most recent lab results Calcium 8.8 mg/dL (8.6-10.3) 09/10/17 05:21 Consult Discharge Plan - Plan Referrals: Ankit Stewart MD [Partnered Physician] - 09/10/17 1:00 pm
[2017-09-10] MEDS: *HR* Heparin 5,000 UNIT/ML VIAL SQ SCH ×2 (08:04→16:41)
[2017-09-10] MEDS: Folic Acid 1 MG TABLET PO SCH (08:04)
[2017-09-10] MEDS: Cyanocobalamin (B-12) 1,000 MCG TABLET PO SCH (08:04)
--- NOTE | 2017-09-10 14:56 | Internal Med Progress Note ---
Date of Encounter: 09/10/17 Time of Encounter: 08:50 - Assessment and plan (1) Empyema Current Visit: Yes Status: Acute Assessment and plan: Patient presented with right-sided loculated pleural effusion and empyema. Pulmonology was consulted and patient received chest tube draining thick purulent material. Cardiothoracic surgery was later consulted for possible bigger bore chest tube, which was deferred per patient's wishes and since the initial tube was draining adequately. s/p removal, stable medically. Patient has been treated with broad-spectrum IV antibiotics. 2 sets of blood cultures and pleural fluid culture showed no growth. Respiratory infection panel negative. Continue oral Augmentin-Day 8 of antibiotics. PT/OT evaluation pending; (2) Loculated pleural effusion Current Visit: Yes Status: Acute Assessment and plan: plan as above; (3) Sepsis Current Visit: Yes Status: Resolved Assessment and plan: Presented with leukocytosis and tachycardia from empyema and pneumonia. Now resolved. Qualifiers: Sepsis type: sepsis due to unspecified organism Qualified Code(s): A41.9 - Sepsis, unspecified organism (4) ESRD (end stage renal disease) Current Visit: Yes Status: Chronic Assessment and plan: Nephrology on board, patient is receiving regular HD sessions while in the hospital. (5) Stage II carcinoma of colon Current Visit: Yes Status: Chronic Assessment and plan: -Status post colostomy - Subjective Interval history: Reports feeling well; no chest pain, dyspnea, fever/chills, nausea, vomiting; - Constitutional Vitals: Temp Pulse Resp BP Pulse Ox 98.2 F 77 18 114/50 97 09/10/17 11:56 09/10/17 11:56 09/10/17 11:56 09/10/17 11:56 09/10/17 11:56 General appearance: Present: cachectic, A&O X 3, no acute distress, underweight , answers questions appropriately - Respiratory Respiratory exam: Present: decreased breath sounds (at right base), CTAB. Absent: accessory muscle use, rales, rhonchi, wheezes - Cardiovascular Cardiovascular exam: Present: RRR, +S1, +S2. Absent: diastolic murmur, gallop, rubs, systolic murmur - GI/Abdominal GI/Abdominal exam: Present: normal bowel sounds, soft, no peritoneal signs. Absent: distended, tenderness - Extremities Exam Extremities exam: Present: pedal edema (B/L ankle edema), warm, radial pulses palpable and symmetrical. Absent: calf tenderness, cyanotic - Neurological Exam Neurological exam: Present: CN II-XII intact, oriented X3, no focal deficits. Absent: pronater drift, facial droop, speech deficit Internal Medicine: Result - Labs CBC & Chem 7: 09/10/17 05:21 09/10/17 05:21 Labs: Short CBC 09/10/17 Range/Units 05:21 WBC 9.9 (4.3-11.1) K/mcL Hgb 10.3 L (12.9-16.9) g/dL Hct 32.9 L (37.5-50.1) % Plt Count 317 (140-400) K/mcL Neutrophils # 7.1 (1.6-8.9) K/mcL BMP 09/10/17 05:21 Sodium 135 L Potassium 4.8 Chloride 100 Carbon Dioxide 29 BUN 17 Creatinine 4.35 H Glucose 96 Calcium 8.8 - ABG Interpretation ABG results: PT/INR, D-dimer PT 14.0 Seconds (9.4-12.1) H 09/03/17 08:07 Consult Discharge Plan - Plan Referrals: Ankit Stewart MD [Partnered Physician] - 09/20/17 1:30 pm (Please follow up as schedule...)
[2017-09-10] MEDS: Amoxicillin/Clavulanate 500 MG TABLET PO SCH (16:41)
[2017-09-11] MEDS: *HR* Heparin 5,000 UNIT/ML VIAL SQ SCH ×3 (00:22→16:14)
[2017-09-11 05:50] LABS: Hematocrit 29.3 % (37.5-50.1); Hemoglobin 9.1 g/dL (12.9-16.9); Mean Corpuscular HGB Conc 31.1 g/dL (31.6-35.5); Mean Corpuscular Hemoglobin 30.4 pg (28.0-33.3); Mean Platelet Volume 8.7 fL (9.4-12.4); Platelet Count 275 K/mcL (140-400); Red Blood Count 2.99 M/mcL (4.19-5.50); Red Cell Distribution Width 15.9 % (11.5-14.5)
[2017-09-11 06:10] LABS: Calcium 8.7 mg/dL (8.6-10.3); Potassium 5.7 mEq/L (3.5-5.1)
[2017-09-11] MEDS ORDERED: 0.9 % Sodium Chloride 2,000 ML ONE (06:57)
[2017-09-11] MEDS ORDERED: 0.9 % Sodium Chloride 250 ML IVC PRN (07:47)
--- NOTE | 2017-09-11 07:47 | Nephrology Progress Note ---
Date of Encounter: 09/11/17 Time of Encounter: 07:46 - Assessment and Plan (1) ESRD (end stage renal disease) Current Visit: Yes Status: Chronic Patient will undergo dialysis today on a 2K bath. (2) Generalized weakness Current Visit: Yes Status: Acute (3) Loculated pleural effusion Current Visit: Yes Status: Acute Subjective Interval history: Patient denies any new complaints. He is not experiencing any chest pain or shortness of breath. He will undergo dialysis today. Potassium is 5.7 to be dialyzed on a 2K bath. Vital signs are stable. Objective - Vital Signs Vital signs: Vital Signs Temp Pulse Resp BP Pulse Ox 09/11/17 06:47 97.8 F 76 14 118/62 96 09/11/17 03:35 97.1 F L 73 16 114/61 96 09/10/17 23:27 97.5 F L 92 16 118/73 94 09/10/17 19:07 97.3 F L 71 16 114/54 96 09/10/17 15:18 97.8 F 87 18 131/66 97 09/10/17 11:56 98.2 F 77 18 114/50 97 Intake and Output 09/10/17 09/10/17 09/11/17 15:59 23:59 07:59 Intake Total 480 / 480 Output Total 350 / 350 Balance 130 / 130 Intake: Oral 480 / 480 Output: Stool 350 / 350 Other: Meal Breakfast Percent of Meal Consumed 90% Stool Consistency liquid Stool Color Brown Weight 50.848 kg Patient Weight 09/11/17 23:59 Weight 50.848 kg - General Appearance Exam: Patient is alert and oriented. He is in no acute distress. He appears chronically ill and cachectic. Lungs diminished breath sounds bilaterally. Heart irregular rate and rhythm. Abdomen is benign. A colostomy is present. There is some ankle edema. There is an AV fistula left upper extremity. - Lab 09/11/17 05:19 09/11/17 05:19 Most recent lab results Calcium 8.7 mg/dL (8.6-10.3) 09/11/17 05:19 Consult Discharge Plan - Plan Referrals: Ankit Stewart MD [Partnered Physician] - 09/20/17 1:30 pm (Please follow up as schedule...)
[2017-09-11] MEDS: Folic Acid 1 MG TABLET PO SCH (08:19)
[2017-09-11] MEDS: Cyanocobalamin (B-12) 1,000 MCG TABLET PO SCH (08:19)
--- NOTE | 2017-09-11 16:11 | Internal Med Progress Note ---
Date of Encounter: 09/11/17 Time of Encounter: 15:00 - Assessment and plan (1) Empyema Current Visit: Yes Status: Acute Assessment and plan: Patient presented with right-sided loculated pleural effusion and empyema. Pulmonology was consulted and patient received chest tube draining thick purulent material. Cardiothoracic surgery was later consulted, s/p removal, stable medically. Patient has been treated with broad-spectrum IV antibiotics. 2 sets of blood cultures and pleural fluid culture showed no growth. Respiratory infection panel negative. Continue oral Augmentin-Day 9 of antibiotics. PT/OT evaluation noted, recommend ECF placement. health services coordinator on board, working on the same. (2) Loculated pleural effusion Current Visit: Yes Status: Acute Assessment and plan: plan as above; (3) Sepsis Current Visit: Yes Status: Resolved Qualifiers: Sepsis type: sepsis due to unspecified organism Qualified Code(s): A41.9 - Sepsis, unspecified organism (4) ESRD (end stage renal disease) Current Visit: Yes Status: Chronic Assessment and plan: Nephrology on board, patient is receiving regular HD sessions while in the hospital. Noted to have hyperkalemia today, expected to improve with hemodialysis. Low potassium diet. (5) Stage II carcinoma of colon Current Visit: Yes Status: Chronic - Subjective Interval history: Feels well, denies new complaints. Underwent hemodialysis today. Awaiting rehabilitation placement. - Constitutional Vitals: Temp Pulse Resp BP Pulse Ox 98.0 F 87 14 99/47 95 09/11/17 14:35 09/11/17 14:35 09/11/17 14:35 09/11/17 14:35 09/11/17 14:35 General appearance: Present: cachectic, A&O X 3, no acute distress, underweight , answers questions appropriately - Respiratory Respiratory exam: Present: decreased breath sounds (Improving breath sounds at right base), CTAB. Absent: accessory muscle use, rales, rhonchi, wheezes - Cardiovascular Cardiovascular exam: Present: RRR, +S1, +S2, systolic murmur. Absent: diastolic murmur, gallop, rubs - GI/Abdominal GI/Abdominal exam: Present: normal bowel sounds, soft, no peritoneal signs. Absent: distended, tenderness Internal Medicine: Result - Labs CBC & Chem 7: 09/11/17 05:19 09/11/17 05:19 Labs: Short CBC 09/11/17 Range/Units 05:19 WBC 8.2 (4.3-11.1) K/mcL Hgb 9.1 L (12.9-16.9) g/dL Hct 29.3 L (37.5-50.1) % Plt Count 275 (140-400) K/mcL BMP 09/11/17 05:19 Sodium 134 L Potassium 5.7 H Chloride 104 Carbon Dioxide 23 BUN 28 H Creatinine 6.27 H Glucose 79 Calcium 8.7 - ABG Interpretation ABG results: PT/INR, D-dimer PT 14.0 Seconds (9.4-12.1) H 09/03/17 08:07 Consult Discharge Plan - Plan Referrals: Ankit Stewart MD [Partnered Physician] - 09/20/17 1:30 pm (Please follow up as schedule...)
[2017-09-11] MEDS: Amoxicillin/Clavulanate 500 MG TABLET PO SCH (18:32)
[2017-09-12] MEDS: *HR* Heparin 5,000 UNIT/ML VIAL SQ SCH ×3 (01:30→16:53)
[2017-09-12 04:51] LABS: Hematocrit 30.5 % (37.5-50.1); Hemoglobin 9.5 g/dL (12.9-16.9); Mean Corpuscular HGB Conc 31.1 g/dL (31.6-35.5); Mean Corpuscular Hemoglobin 30.5 pg (28.0-33.3); Mean Corpuscular Volume 98.1 fL (83.0-100.0); Mean Platelet Volume 8.8 fL (9.4-12.4); Platelet Count 274 K/mcL (140-400); Red Blood Count 3.11 M/mcL (4.19-5.50); Red Cell Distribution Width 16.7 % (11.5-14.5)
[2017-09-12 05:13] LABS: Calcium 8.7 mg/dL (8.6-10.3)
[2017-09-12] MEDS: Folic Acid 1 MG TABLET PO SCH (09:06)
[2017-09-12] MEDS: Cyanocobalamin (B-12) 1,000 MCG TABLET PO SCH (09:06)
--- NOTE | 2017-09-12 11:05 | Nephrology Progress Note ---
Date of Encounter: 09/12/17 Time of Encounter: 10:35 - Assessment and Plan (1) ESRD (end stage renal disease) Current Visit: Yes Status: Chronic No HD today, keeping MWF schedule. (2) Generalized weakness Current Visit: Yes Status: Acute Subjective Interval history: Sitting up in chair. No new complaints. States awaiting placement in ECF for rehab Objective - Vital Signs Vital signs: Vital Signs Temp Pulse Resp BP Pulse Ox 09/12/17 07:52 98.6 F 103 16 117/65 98 09/12/17 04:32 97.8 F 79 16 123/48 96 09/12/17 00:42 97.8 F 84 16 106/53 98 09/11/17 20:22 98.3 F 83 16 108/66 96 09/11/17 14:35 98.0 F 87 14 99/47 95 09/11/17 12:15 97.5 F L 97/54 09/11/17 11:25 103/55 09/11/17 11:10 100/56 Intake and Output 09/11/17 09/12/17 09/12/17 23:59 07:59 15:59 Intake Total 120 / 120 Output Total 200 / 200 Balance 120 / 120 -200 / -200 Intake: Oral 120 / 120 Output: Stool 200 / 200 Other: Meal Dinner Percent of Meal Consumed 50% Weight 46.833 kg Patient Weight 09/12/17 23:59 Weight 46.833 kg - General Appearance General appearance: Present: appears started age EENT: Present: mucous membranes moist Neck: Present: no JVD Respiratory: Present: clear Cardiology: Present: edema, regular rate, regular rhythm Additional Comments: ankle, pitting Dialysis Vascular Access: Arteriovenous Fistula Gastrointestinal: Present: normoactive bowel sounds, no tenderness Additional Comments: colostomy Integumentary: Present: warm and dry Neurologic: Present: alert and oriented x3 - Lab 09/12/17 04:00 09/12/17 04:00 Most recent lab results Calcium 8.7 mg/dL (8.6-10.3) 09/12/17 04:00 Consult Discharge Plan - Plan Referrals: Ankit Stewart MD [Partnered Physician] - 09/20/17 1:30 pm (Please follow up as schedule...)
[2017-09-12] MEDS: Amoxicillin/Clavulanate 500 MG TABLET PO SCH (16:53)
--- NOTE | 2017-09-12 17:06 | Internal Med Progress Note ---
Date of Encounter: 09/12/17 Time of Encounter: 11:00 - Assessment and plan (1) Empyema Current Visit: Yes Status: Acute Assessment and plan: Patient presented with right-sided loculated pleural effusion and empyema. Pulmonology was consulted and patient received chest tube draining thick purulent material. Cardiothoracic surgery was later consulted, s/p removal, stable medically. Patient has been treated with broad-spectrum IV antibiotics. 2 sets of blood cultures and pleural fluid culture showed no growth. Respiratory infection panel negative. Continue oral Augmentin-Day 10 of antibiotics. PT/OT evaluation noted, recommend ECF placement. supervisor volunteer services on board, working on the same. (2) Loculated pleural effusion Current Visit: Yes Status: Acute (3) Sepsis Current Visit: Yes Status: Resolved Qualifiers: Sepsis type: sepsis due to unspecified organism Qualified Code(s): A41.9 - Sepsis, unspecified organism (4) ESRD (end stage renal disease) Current Visit: Yes Status: Chronic Assessment and plan: Nephrology on board, patient is receiving regular HD sessions while in the hospital. Low potassium diet. (5) Stage II carcinoma of colon Current Visit: Yes Status: Chronic - Subjective Interval history: Feels well, denies new complaints. Awaiting rehabilitation placement. - Constitutional Vitals: Temp Pulse Resp BP Pulse Ox 97.8 F 87 16 118/64 98 09/12/17 15:34 09/12/17 15:34 09/12/17 15:34 09/12/17 15:34 09/12/17 15:34 General appearance: Present: cachectic, A&O X 3, no acute distress, underweight , answers questions appropriately - Respiratory Respiratory exam: Present: CTAB. Absent: accessory muscle use, rales, rhonchi, wheezes - Cardiovascular Cardiovascular exam: Present: RRR, +S1, +S2, systolic murmur. Absent: diastolic murmur, gallop, rubs Internal Medicine: Result - Labs CBC & Chem 7: 09/12/17 04:00 09/12/17 04:00 Labs: Short CBC 09/12/17 Range/Units 04:00 WBC 8.7 (4.3-11.1) K/mcL Hgb 9.5 L (12.9-16.9) g/dL Hct 30.5 L (37.5-50.1) % Plt Count 274 (140-400) K/mcL BMP 09/12/17 04:00 Sodium 139 Potassium 5.0 Chloride 101 Carbon Dioxide 32 H BUN 18 Creatinine 4.44 H Glucose 82 Calcium 8.7 - ABG Interpretation ABG results: PT/INR, D-dimer PT 14.0 Seconds (9.4-12.1) H 09/03/17 08:07 Consult Discharge Plan - Plan Referrals: Ankit Stewart MD [Partnered Physician] - 09/20/17 1:30 pm (Please follow up as schedule...)
[2017-09-13] MEDS: *HR* Heparin 5,000 UNIT/ML VIAL SQ SCH ×3 (01:09→17:22)
[2017-09-13 03:44] LABS: Calcium 8.8 mg/dL (8.6-10.3); Potassium 5.8 mEq/L (3.5-5.1)
[2017-09-13 03:54] LABS: Hematocrit 28.4 % (37.5-50.1); Hemoglobin 8.8 g/dL (12.9-16.9); Mean Corpuscular Hemoglobin 30.7 pg (28.0-33.3); Mean Platelet Volume 8.8 fL (9.4-12.4); Platelet Count 276 K/mcL (140-400); Red Blood Count 2.87 M/mcL (4.19-5.50); Red Cell Distribution Width 17.2 % (11.5-14.5)
[2017-09-13] MEDS ORDERED: 0.9 % Sodium Chloride 250 ML IVC PRN (07:51)
[2017-09-13] MEDS: Cyanocobalamin (B-12) 1,000 MCG TABLET PO SCH (08:07)
[2017-09-13] MEDS: Folic Acid 1 MG TABLET PO SCH (08:07)
--- NOTE | 2017-09-13 08:43 | Nephrology Progress Note ---
Date of Encounter: 09/13/17 Time of Encounter: 08:20 - Assessment and Plan (1) ESRD (end stage renal disease) Current Visit: Yes Status: Chronic HD today, keeping MWF schedule. Orders given. (2) Generalized weakness Current Visit: Yes Status: Acute Subjective Interval history: Sitting up on edge of bed. No new complaints. States awaiting placement in ECF for rehab Objective - Vital Signs Vital signs: Vital Signs Temp Pulse Resp BP Pulse Ox 09/13/17 07:28 97.8 F 76 16 118/71 97 09/13/17 04:50 98.3 F 72 16 117/55 99 09/13/17 00:34 98.5 F 74 16 116/67 98 09/12/17 19:22 98.6 F 88 16 115/61 95 09/12/17 15:34 97.8 F 87 16 118/64 98 09/12/17 11:09 97.5 F L 86 15 118/53 99 Intake and Output 09/12/17 09/13/17 09/13/17 23:59 07:59 15:59 Intake Total 50 / 50 Output Total 0 / 0 Balance 50 / 50 Intake: Oral 50 / 50 Output: Urine 0 / 0 Other: Meal Dinner Percent of Meal Consumed 80% Weight 49.26 kg Patient Weight 09/13/17 23:59 Weight 49.26 kg - General Appearance General appearance: Present: appears started age EENT: Present: mucous membranes moist Neck: Present: no JVD Respiratory: Present: clear Cardiology: Present: edema, regular rate, regular rhythm Additional Comments: pedal/ankle pitting Dialysis Vascular Access: Arteriovenous Fistula Gastrointestinal: Present: normoactive bowel sounds, no tenderness Additional Comments: colostomy Integumentary: Present: warm and dry Neurologic: Present: alert and oriented x3 - Lab 09/13/17 03:09 09/13/17 03:09 Most recent lab results Calcium 8.8 mg/dL (8.6-10.3) 09/13/17 03:09 Consult Discharge Plan - Plan Referrals: Ankit Stewart MD [Partnered Physician] - 09/20/17 1:30 pm (Please follow up as schedule...)
[2017-09-13] MEDS ORDERED: 0.9 % Sodium Chloride 2,000 ML ONE (10:48)
--- NOTE | 2017-09-13 16:27 | Internal Med Progress Note ---
Date of Encounter: 09/13/17 Time of Encounter: 16:00 - Assessment and plan (1) Empyema Current Visit: Yes Status: Acute Assessment and plan: Patient presented with right-sided loculated pleural effusion and empyema. Pulmonology was consulted and patient received chest tube draining thick purulent material. Cardiothoracic surgery was later consulted, s/p removal, stable medically. Patient has been treated with broad-spectrum IV antibiotics. 2 sets of blood cultures and pleural fluid culture showed no growth. Respiratory infection panel negative. Continue oral Augmentin-Day 11 of antibiotics. PT/OT evaluation noted, recommend ECF placement. guest services agent on board, working on the same. (2) Loculated pleural effusion Current Visit: Yes Status: Acute (3) Sepsis Current Visit: Yes Status: Resolved Qualifiers: Sepsis type: sepsis due to unspecified organism Qualified Code(s): A41.9 - Sepsis, unspecified organism (4) ESRD (end stage renal disease) Current Visit: Yes Status: Chronic Assessment and plan: Nephrology on board, patient is receiving regular HD sessions while in the hospital. Low potassium diet. (5) Stage II carcinoma of colon Current Visit: Yes Status: Chronic - Subjective Interval history: Feels well, denies new complaints. Awaiting rehabilitation placement. received HD today; - Constitutional Vitals: Temp Pulse Resp BP Pulse Ox 98.8 F 80 14 109/61 96 09/13/17 16:23 09/13/17 16:23 09/13/17 16:23 09/13/17 16:23 09/13/17 16:23 General appearance: Present: cachectic, A&O X 3, no acute distress, underweight , answers questions appropriately - Respiratory Respiratory exam: Present: CTAB. Absent: accessory muscle use, rales, rhonchi, wheezes - Cardiovascular Cardiovascular exam: Present: RRR, +S1, +S2, systolic murmur. Absent: diastolic murmur, gallop, rubs Internal Medicine: Result - Labs CBC & Chem 7: 09/13/17 03:09 09/13/17 03:09 Labs: Short CBC 09/13/17 Range/Units 03:09 WBC 9.4 (4.3-11.1) K/mcL Hgb 8.8 L (12.9-16.9) g/dL Hct 28.4 L (37.5-50.1) % Plt Count 276 (140-400) K/mcL BMP 09/13/17 03:09 Sodium 136 Potassium 5.8 H Chloride 101 Carbon Dioxide 26 BUN 31 H Creatinine 6.33 H Glucose 111 H Calcium 8.8 - ABG Interpretation ABG results: PT/INR, D-dimer PT 14.0 Seconds (9.4-12.1) H 09/03/17 08:07 Consult Discharge Plan - Plan Referrals: Ankit Stewart MD [Partnered Physician] - 09/20/17 1:30 pm (Please follow up as schedule...)
--- NOTE | 2017-09-13 17:16 | Discharge Summary ---
Orders not resulted at time of discharge: Pending orders 09/03/17 12:56 Culture,Body Fluid [RM] Stat 09/14/17 04:00 BMP [Basic Metabolic Panel] AM 0400 Complete Blood Count w/o Diff [HEME] AM 0400 09/15/17 04:00 BMP [Basic Metabolic Panel] AM 0400 Complete Blood Count w/o Diff [HEME] AM 0400 09/16/17 04:00 BMP [Basic Metabolic Panel] AM 0400 Complete Blood Count w/o Diff [HEME] AM 0400 Date of Encounter: 09/13/17 Time of Encounter: 17:14 - Discharge Diagnosis (1) Empyema Priority: Primary Status: Acute (2) Loculated pleural effusion Priority: Primary Status: Acute (3) Sepsis Priority: Primary Status: Resolved Qualifiers: Sepsis type: sepsis due to unspecified organism Qualified Code(s): A41.9 - Sepsis, unspecified organism (4) ESRD (end stage renal disease) Priority: Secondary Status: Chronic (5) Stage II carcinoma of colon Priority: Secondary Status: Chronic Hospital course: Mr. Lutz is a 87 year old male with the above medical problems, who was admitted with cough and weakness. He was noted to be septic with possible pneumonia and was started on IV antibiotics. CT chest showed moderate partially loculated right pleural effusion, left lower lobe bronchiolitis. Blood cultures and respiratory infection panel with negative. Pulmonology was consulted and patient received chest tube draining thick purulent material. Cardiothoracic surgery was later consulted, s/p removal. Pleural fluid cultures so far shows anaerobic gram-positive cocci. Patient has been on IV Zosyn, switched to PO Augmentin, completed 11 days so far. He will be discharged with 3 more days of oral Augmentin. PT/OT evaluation noted, recommend ECF placement. Nephrology has been on board and patient received regular hemodialysis sessions while in the hospital. Discharge discussed with: patient - Time Spent with Patient Total time spent providing and/or coordinating discharge services: Greater than 30 minutes (45 min) - Discharge Medications Home Medications: Midodrine [ProAmatine] 10 mg PO MOWEFR 09/02/17 [History] Amoxicillin/Clavulanate [Augmentin] 500 mg PO DAILY@1800 #4 tablet 09/13/17 [Rx] Cyanocobalamin (B-12) [Vitamin B12] 1,000 mcg PO DAILY tablet 09/13/17 [Rx] Darbepoetin [Aranesp] 60 mcg SQ QWEEK syringe 09/13/17 [Rx] Folic Acid 1 mg PO DAILY tablet 09/13/17 [Rx] Allergies/Adverse Reactions: 3 Allergy/AdvReac Type Severity Reaction Status Date / Time No Known Allergies Allergy Verified 09/02/17 10:35 Date of admission: 09/02/17 16:41 Primary care physician: Rafy Pitts MD Consults: 09/03/17 13:04 Consult to Pulmonology [CONS] Routine Consulting Provider: [facility] Reason for Consult: Chest tube placed. Right Pleural effusion. Call Completed: Yes 09/03/17 15:30 Consult to Wound Care [CONS] Routine Reason for Consult: colostomy continues to leak, skin excoriated. Time Notified: 15:32 Call Completed: Yes 09/04/17 08:15 Consult to Dialysis [CONS] ONCE 09/04/17 10:44 Consult to Cardiothoracic Surgery [CONS] Routine Consulting Provider: Cardiothoracic Surgery [place] Reason for Consult: empyema Call Completed: Yes 09/06/17 09:30 Consult to Dialysis [CONS] ONCE 09/09/17 08:30 Consult to Dialysis [CONS] ONCE 09/09/17 10:24 PT [Consult to Physical Therapy] [CONS] Routine Comment: Evaluate, develop and implement POC Reason for Consult: weakness 09/09/17 10:25 OT [Consult to Occupational Therapy] [CONS] Routine Comment: Evaluate, develop and implement POC Reason for Consult: weakness 09/11/17 07:27 Consult to Car Blocker [CONS] Routine Reason for SW Consult: needs ecf 09/11/17 08:00 Consult to Dialysis [CONS] ONCE 09/13/17 08:00 Consult to Dialysis [CONS] ONCE Discharging clinician: Jackie Smiley Anticipated date of discharge: 09/13/17 - Constitutional Vitals: Temp Pulse Resp BP Pulse Ox 98.8 F 80 14 109/61 96 09/13/17 16:23 09/13/17 16:23 09/13/17 16:23 09/13/17 16:23 09/13/17 16:23 General appearance: Present: cachectic, A&O X 3, no acute distress, underweight , answers questions appropriately - Cardiovascular Cardiovascular exam: Present: RRR, +S1, +S2, systolic murmur. Absent: diastolic murmur, gallop, rubs - Patient Status Disposition: Transfer SNF Condition: Fair Functional capacity at discharge: uses cane/walker Overall status at discharge: patient is progressing back to baseline - Discharge Instructions Follow Up With: Ankit Stewart MD [Partnered Physician] - 09/20/17 1:30 pm (Please follow up as schedule...) Additional Instructions: F/up with HD 3 times/week- MWF - Diet and Activity Activity: as per physical therapy Diet: low fat, low cholesterol, low salt diet, other (renal diet)
--- NOTE | 2017-09-13 17:19 | Physician Discharge Referral ---
ExtendedCare Referral Info Transfer To: [facility] Provider in Charge: Jackie Smiley Provider in Charge after Transfer: PCP Institutional Level of Care: Skilled - Diagnosis (1) Empyema Priority: Primary Status: Acute (2) Loculated pleural effusion Priority: Primary Status: Acute (3) Sepsis Priority: Primary Status: Resolved (4) ESRD (end stage renal disease) Priority: Secondary Status: Chronic (5) Stage II carcinoma of colon Priority: Secondary Status: Chronic Expected Duration of Placement: 3 weeks Prognosis: Fair Aware of Diagnosis: Patient, Family Aware of Prognosis: Patient, Family - Transfer Medications Home Medications: Midodrine [ProAmatine] 10 mg PO MOWEFR 09/02/17 [History] Amoxicillin/Clavulanate [Augmentin] 500 mg PO DAILY@1800 #4 tablet 09/13/17 [Rx] Cyanocobalamin (B-12) [Vitamin B12] 1,000 mcg PO DAILY tablet 09/13/17 [Rx] Darbepoetin [Aranesp] 60 mcg SQ QWEEK syringe 09/13/17 [Rx] Folic Acid 1 mg PO DAILY tablet 09/13/17 [Rx] Allergies/Adverse Reactions: 3 Allergy/AdvReac Type Severity Reaction Status Date / Time No Known Allergies Allergy Verified 09/02/17 10:35 - Respiratory Orders Smoking Cessation: Smoking cessation has been advised. For more information, call the [place] Tobacco Quit Line at 5-427-VYKYNOW. - Advance Directives Code Status: Full Code - Rehabiliation Orders Rehab Potential: Fair Rehab Orders: ROM Exercises, Evaluation for Physical Therapy, Evaluation for Occupational Therapy - Diet Orders No Added Salt (KLARISSA), Renal, Cardiac CERTIFICATION: I certify that the transfer of the above named patient to an Extended Care Facility is necessary for the continuing treatment of the diagnosis listed. The above information is true and accurate reflection of patient's current condition. Confidential - Redisclosure prohibited without a patient's written consent.
[2017-09-13] MEDS: Amoxicillin/Clavulanate 500 MG TABLET PO SCH (17:22)
[2017-09-14] MEDS: *HR* Heparin 5,000 UNIT/ML VIAL SQ SCH ×2 (01:02→08:48)
[2017-09-14 03:41] LABS: Hemoglobin 9.4 g/dL (12.9-16.9); Mean Corpuscular HGB Conc 31.3 g/dL (31.6-35.5); Mean Corpuscular Hemoglobin 30.6 pg (28.0-33.3); Mean Corpuscular Volume 97.7 fL (83.0-100.0); Mean Platelet Volume 8.8 fL (9.4-12.4); Platelet Count 294 K/mcL (140-400); Red Blood Count 3.07 M/mcL (4.19-5.50); Red Cell Distribution Width 17.9 % (11.5-14.5)
[2017-09-14 03:56] LABS: Calcium 8.8 mg/dL (8.6-10.3); Potassium 5.8 mEq/L (3.5-5.1)
[2017-09-14] MEDS: Cyanocobalamin (B-12) 1,000 MCG TABLET PO SCH (08:48)
[2017-09-14] MEDS: Folic Acid 1 MG TABLET PO SCH (08:48)
--- NOTE | 2017-09-14 13:10 | Internal Med Progress Note ---
Date of Encounter: 09/14/17 Time of Encounter: 10:00 - Assessment and plan (1) Hyperkalemia Current Visit: Yes Status: Acute Assessment and plan: related to ESRD, his K tends to run higher; received HD yesterday; d/w Nephrology- no HD today, recommend medical management; will order Kayexalate and recheck K, patient is stable for discharge if it improves; continue Telemetry; (2) Empyema Current Visit: Yes Status: Acute Assessment and plan: Patient presented with right-sided loculated pleural effusion and empyema. Pulmonology was consulted and patient received chest tube draining thick purulent material. Cardiothoracic surgery was later consulted, s/p removal, stable medically. Continue oral Augmentin-Day 12 of antibiotics. PT/OT evaluation noted, recommend ECF placement. Patient refused to be discharged last evening; (3) Loculated pleural effusion Current Visit: Yes Status: Acute (4) Sepsis Current Visit: Yes Status: Resolved Qualifiers: Sepsis type: sepsis due to unspecified organism Qualified Code(s): A41.9 - Sepsis, unspecified organism (5) ESRD (end stage renal disease) Current Visit: Yes Status: Chronic (6) Stage II carcinoma of colon Current Visit: Yes Status: Chronic - Subjective Interval history: Feels well, denies new complaints. patient reports that "he didn't want to be out in the cold" which is why he refused to be discharged to ECF last evening; - Constitutional Vitals: Temp Pulse Resp BP Pulse Ox 98.1 F 79 18 110/61 95 09/14/17 11:21 09/14/17 11:21 09/14/17 11:21 09/14/17 11:21 09/14/17 11:21 General appearance: Present: cachectic, A&O X 3, no acute distress, underweight , answers questions appropriately - Respiratory Respiratory exam: Present: CTAB. Absent: accessory muscle use, rales, rhonchi, wheezes - Cardiovascular Cardiovascular exam: Present: RRR, +S1, +S2, systolic murmur. Absent: diastolic murmur, gallop, rubs Internal Medicine: Result - Labs CBC & Chem 7: 09/14/17 03:02 09/14/17 03:02 Labs: Short CBC 09/14/17 Range/Units 03:02 WBC 9.3 (4.3-11.1) K/mcL Hgb 9.4 L (12.9-16.9) g/dL Hct 30.0 L (37.5-50.1) % Plt Count 294 (140-400) K/mcL BMP 09/14/17 03:02 Sodium 136 Potassium 5.8 H Chloride 99 Carbon Dioxide 32 H BUN 25 H Creatinine 4.87 H Glucose 84 Calcium 8.8 - ABG Interpretation ABG results: PT/INR, D-dimer PT 14.0 Seconds (9.4-12.1) H 09/03/17 08:07 Consult Discharge Plan - Plan Additional Instructions: F/up with HD 3 times/week- MWF Referrals: Ankit Stewart MD [Partnered Physician] - 09/20/17 1:30 pm (Please follow up as schedule...)
[2017-09-14 15:12] VITALS: BP 126/69
== END 2017-09-14 15:20 | DRG 871 ==
LOC: EMEROO 10:34 → SUATTDRO 16:41 → 2ANU 16:41
PROVIDERS: ADMIT Family Medicine; ATTEND Internal Medicine

== ENCOUNTER 2018-11-25 18:38 | Inpatient (IN) ==
[2018-11-25] MEDS ORDERED: Ipratropium/Albuterol Neb 3 ML ONE (18:46)
--- NOTE | 2018-11-25 18:52 | Emergency Department Note ---
Disposition Clinical Impression: Pneumonia Qualifiers: Pneumonia type: due to unspecified organism Laterality: unspecified laterality Lung location: unspecified part of lung Qualified Code(s): J18.9 - Pneumonia, unspecified organism Disposition: Admitted As Inpatient Condition: Critical Time of Disposition: 22:30 General Adult HPI - General Chief complaint: ED Shortness of Breath/Dyspnea Stated complaint: SABA Time Seen by Provider: 11/25/18 18:49 Source: patient, EMS Limitations: no limitations Nursing Notes Reviewed: Yes Vital Signs Reviewed: Yes - History of Present Illness HPI Narrative: Dialysis patient brought in by EMS from home for evaluation of sudden onset shortness of breath and initial pulse ox which they said was difficult to get but a proximally 70. Unsure if this was secondary to cold fingers. Patient has had a cough while in the emergency department. Patient does have rhonchorous br eath sounds. Due to dialysis concern for possible fluid overload as well. Initial chest x-ray was performed and concerned more for multifocal pneumonia. Patient will be given breathing treatments and undergo further evaluation. Patient does appear to have conversational dyspnea but is able to talk in complete sentences and does have a wet cough. The patient states that his complaint is difficulty with swallowing. Patient does not have any focal neurologic deficits, cranial nerves II through XII intact as well as sensation strength throughout the upper lower extremities. Pain Scale: 0 - Related Data Home Medications Medication Instructions Recorded Confirmed Midodrine [ProAmatine] 10 mg PO MOWEFR 09/02/17 11/25/18 Cholecalciferol (Vitamin D3) 50,000 unit PO TU 04/04/18 11/25/18 [Vitamin D3] Allergies Allergy/AdvReac Type Severity Reaction Status Date / Time No Known Allergies Allergy Verified 11/12/18 16:48 Limitations: ROS unobtainable due to patients medical condition Past Medical History - Past Medical History Medical history: Reports: cancer, dialysis, kidney stones, renal disease, other Surgical history: Reports: colostomy Psychiatric history: Reports: no psych history - Social History Smoking Status: Former smoker Smokeless Tobacco Status: No Alcohol use: Reports: none Drug use: Reports: none Physical Exam General: Patient acute respiratory distress and conversationally dyspneic Head: Normocephalic Atraumatic Eyes: PERRL, EOMI ENT: Airway patent, no stridor Neck: supple, no meningismus Chest: Diffuse wheezing and rhonchi Cardiac: Regular rhythm, tachycardic Abdomen: soft, nontender, nondistended; no guarding, rebound, or tenderness to percussion Musculoskeletal: Calves symmetric, nontender. Skin: No rash, normal skin tone. Neuro: A she is able to move all 4 extremities, answer his name but gets conversationally dyspneic and has difficulty communicating after simple questions - General Limitations: no limitations General appearance: alert, in no apparent distress Course - Reevaluation(s) Reevaluation #1: Mental status significant improved after fluids and breathing treatment. Patient states that he was in the hospital recently. Medical records show pneumonia. Patient has had difficulty swallowing. Feeding tube has been discussed which he did not want. Overall the patient's blood pressure has been low. I did have significant conversations with both him as well as family at bedside. Patient will not likely improve without proper underlying nutrition. Antibiotics be continued but the patient was adamant about not wanting a feeding tube. The patient had discussions regards to central line which the patient states he does not also want. Patient wants to get better with antibiotics. At this time I have made it known to them that antibiotics alone may not improve him is his overall immune function and low BMI not going to trend towards a well outcome. Patient wants to give antibiotics a try. I did discuss with them possibility of central line. The did at one point wish to go home for possible hospice care. Given the time of night, proper resources cannot be obtained for this. Going home without oxygen as well as antibiotics would lead to terminal outcome likely before morning. Patient will be discussed the hospitalist. Patient is comfort care. We will discuss palliative and hospice measures and allow for the patient to possibly be treated with antibiotics only. Patient is in critical condition but does not want any other aggressive measures. Patient will be admitted to the hospitalist service. Vital Signs Temperature 97.7 F 11/25/18 18:43 Pulse Rate 97 11/25/18 18:43 Respiratory Rate 24 11/25/18 18:43 Blood Pressure 0/0 11/25/18 18:43 O2 Sat by Pulse Oximetry 0 11/25/18 18:43 Temperature 97.7 F 11/25/18 18:43 Pulse Rate 85 11/25/18 22:11 Respiratory Rate 16 11/25/18 22:11 Blood Pressure 80/48 11/25/18 22:11 O2 Sat by Pulse Oximetry 98 11/25/18 22:11 Oxygen Delivery Oxygen Delivery Oximizer Medical Decision Making - Lab Data Result diagrams: 11/25/18 18:50 11/25/18 18:50 Lab Results 11/25/18 11/25/18 11/25/18 Range/Units 18:50 18:50 18:50 WBC 11.6 H (4.3-11.1) K/mcL RBC 3.76 L (4.19-5.50) M/mcL Hgb 12.4 L (12.9-16.9) g/dL Hct 37.3 L (37.5-50.1) % MCV 99.2 (83.0-100.0) fL MCH 33.0 (28.0-33.3) pg MCHC 33.2 (31.6-35.5) g/dL RDW 15.9 H (11.5-14.5) % Plt Count 326 (140-400) K/mcL MPV 9.4 (9.4-12.4) fL Immature Gran % 0.3 (0-4) % Seg Neutrophils % 91.1 % Lymphocytes % 5.5 % Monocytes % 3.0 % Eosinophils % 0.0 % Basophils % 0.1 % Neutrophils # 10.5 H (1.6-8.9) K/mcL Lymphocytes # 0.6 (0.6-4.6) K/mcL Monocytes # 0.4 (0.0-1.3) K/mcL Eosinophils # 0.0 (0.0-0.6) K/mcL Basophils # 0.0 (0.0-0.2) K/mcL VBG pH (7.32-7.42) pH Units VBG pCO2 (41-51) mmHg VBG pO2 (25-50) mmHg VBG HCO3 (21-27) mEq/L Sodium 142 (136-145) mEq/L Potassium 3.7 (3.5-5.1) mEq/L Chloride 93 L (98-107) mEq/L Carbon Dioxide 27 (23-29) mEq/L BUN 40 H (8-23) mg/dL Creatinine 5.88 H (0.70-1.30) mg/dL Est GFR ( Amer) 11 L (> 60) Est GFR (Non-Af Amer) 9 L (> 60) BUN/Creatinine Ratio 7 (6-26) Glucose 113 H (70-105) mg/dL Calculated Osmolality 305 H (280-300) Lactic Acid (0.5-2.2) mmol/L Calcium 9.8 (8.6-10.3) mg/dL Troponin I 0.12 H* (< 0.04) ng/mL B-Natriuretic Peptide 190 H (Less than 100) pg/mL Procalcitonin (0.00-0.15) ng/mL 11/25/18 11/25/18 11/25/18 Range/Units 18:56 19:15 20:48 WBC (4.3-11.1) K/mcL RBC (4.19-5.50) M/mcL Hgb (12.9-16.9) g/dL Hct (37.5-50.1) % MCV (83.0-100.0) fL MCH (28.0-33.3) pg MCHC (31.6-35.5) g/dL RDW (11.5-14.5) % Plt Count (140-400) K/mcL MPV (9.4-12.4) fL Immature Gran % (0-4) % Seg Neutrophils % % Lymphocytes % % Monocytes % % Eosinophils % % Basophils % % Neutrophils # (1.6-8.9) K/mcL Lymphocytes # (0.6-4.6) K/mcL Monocytes # (0.0-1.3) K/mcL Eosinophils # (0.0-0.6) K/mcL Basophils # (0.0-0.2) K/mcL VBG pH 7.32 (7.32-7.42) pH Units VBG pCO2 54 H (41-51) mmHg VBG pO2 27 (25-50) mmHg VBG HCO3 28 H (21-27) mEq/L Sodium (136-145) mEq/L Potassium (3.5-5.1) mEq/L Chloride (98-107) mEq/L Carbon Dioxide (23-29) mEq/L BUN (8-23) mg/dL Creatinine (0.70-1.30) mg/dL Est GFR ( Amer) (> 60) Est GFR (Non-Af Amer) (> 60) BUN/Creatinine Ratio (6-26) Glucose (70-105) mg/dL Calculated Osmolality (280-300) Lactic Acid 3.3 H 2.6 H (0.5-2.2) mmol/L Calcium (8.6-10.3) mg/dL Troponin I (< 0.04) ng/mL B-Natriuretic Peptide (Less than 100) pg/mL Procalcitonin (0.00-0.15) ng/mL 11/25/18 Range/Units 20:48 WBC (4.3-11.1) K/mcL RBC (4.19-5.50) M/mcL Hgb (12.9-16.9) g/dL Hct (37.5-50.1) % MCV (83.0-100.0) fL MCH (28.0-33.3) pg MCHC (31.6-35.5) g/dL RDW (11.5-14.5) % Plt Count (140-400) K/mcL MPV (9.4-12.4) fL Immature Gran % (0-4) % Seg Neutrophils % % Lymphocytes % % Monocytes % % Eosinophils % % Basophils % % Neutrophils # (1.6-8.9) K/mcL Lymphocytes # (0.6-4.6) K/mcL Monocytes # (0.0-1.3) K/mcL Eosinophils # (0.0-0.6) K/mcL Basophils # (0.0-0.2) K/mcL VBG pH (7.32-7.42) pH Units VBG pCO2 (41-51) mmHg VBG pO2 (25-50) mmHg VBG HCO3 (21-27) mEq/L Sodium (136-145) mEq/L Potassium (3.5-5.1) mEq/L Chloride (98-107) mEq/L Carbon Dioxide (23-29) mEq/L BUN (8-23) mg/dL Creatinine (0.70-1.30) mg/dL Est GFR ( Amer) (> 60) Est GFR (Non-Af Amer) (> 60) BUN/Creatinine Ratio (6-26) Glucose (70-105) mg/dL Calculated Osmolality (280-300) Lactic Acid (0.5-2.2) mmol/L Calcium (8.6-10.3) mg/dL Troponin I (< 0.04) ng/mL B-Natriuretic Peptide (Less than 100) pg/mL Procalcitonin 2.04 H (0.00-0.15) ng/mL
[2018-11-25] MEDS ORDERED: 0.9 % Sodium Chloride 250 ML IVC ONE ×3 (18:59→20:04)
[2018-11-25] MEDS ORDERED: 0.9 % Sodium Chloride 250 ML ONE (19:04)
[2018-11-25 19:15] LABS: Basophils % 0.1 %; Hematocrit 37.3 % (37.5-50.1); Hemoglobin 12.4 g/dL (12.9-16.9); Immature Granulocytes % 0.3 % (0-4); Lymphocytes # 0.6 K/mcL (0.6-4.6); Lymphocytes % 5.5 %; Mean Corpuscular HGB Conc 33.2 g/dL (31.6-35.5); Mean Corpuscular Volume 99.2 fL (83.0-100.0); Mean Platelet Volume 9.4 fL (9.4-12.4); Monocytes # 0.4 K/mcL (0.0-1.3); Neutrophils # 10.5 K/mcL (1.6-8.9); Platelet Count 326 K/mcL (140-400); Red Blood Count 3.76 M/mcL (4.19-5.50); Red Cell Distribution Width 15.9 % (11.5-14.5); Segmented Neutrophils % 91.1 %
[2018-11-25 19:18] LABS: VBG HCO3 28 mEq/L (21-27); VBG PCO2 54 mmHg (41-51); VBG PH 7.32 pH Units (7.32-7.42); VBG PO2 27 mmHg (25-50)
[2018-11-25] MEDS ORDERED: Levofloxacin 750 MG/150 ML 750 MG/150 ML BAG IVPB ONE (19:39)
[2018-11-25] MEDS ORDERED: Cefepime HCl 2,000 MG in Water for inj. (sterile) 20 ML 20 ML IVP ONE (19:39)
[2018-11-25 19:47] LABS: Calcium 9.8 mg/dL (8.6-10.3); Potassium 3.7 mEq/L (3.5-5.1); Troponin I 0.12 ng/mL (< 0.04)
[2018-11-25] MEDS ORDERED: 0.9 % Sodium Chloride 500 ML IVC ONE ×2 (20:34→22:08)
[2018-11-25] MEDS ORDERED: Ipratropium/Albuterol Neb 3 ML IH ONE (20:48)
--- NOTE | 2018-11-25 21:40 | Internal Med History&Physical ---
<Td Burroughs S - Last Filed: 11/25/18 22:55> Date of Encounter: 11/25/18 Time of Encounter: 22:26 Internal Medicine - H&P: HPI Chief complaint: SOB Admitted From: Home Plans for Post Hospital Care: Hospice - Home History of present illness: Mr. Lutz is a 88 year old male with PMH of ESRD on HD MWF, aspiration, skin cancer and hx of colon cancer. He was recently seen at [facility] and was discharged with Augmentin x 10 days for apsiration PNA. He completed 3 days of abx before coming back to the ER for increasing shortness of breath. His care givers state that he has had increasing SOB and cough, increasing sputum production and that his cough has become very wet over the last 24hrs. He was brought in and initially his pulse ox was 70% with an SBP in the 50's. He was able to answer most questions but allowed his care givers to participate in the majority of the conversation. He states that he has been much more lethargic lately and that he is becoming much weaker, he doesn't wish to have aggressive management and wishes to not have a CVC placement despite hypotension. He also wishes only to have fluid boluses and wishes for no intervention with pressors for his blood pressure. In the ER he was found to have an elevated white count. He met SIRS critera for HR, RR and BP and was given fluids. He continued to be hypotensive but repeatedly told that he didn't wish for CVC placement. He also was found to have an elevated troponin but denied any chest pain. He was found to have XR concerni ng for PNA and was given vancomycin, levaquin and cefepime. He wishes to continue antibioitcs thru the night and to be seen by a palliative care doctor tomorrow so that he can be given oxygen and then go home to pass away peacefully. Past Med Surg Social Fam HX - Past Medical History Medical history: cancer, dialysis, kidney stones, renal disease, other Additional medical history: Colon Cancer. Psychiatric history: no psych history - Past Surgical History Surgical History: colostomy Additional surgical history: GI sx 2008. fistula 2014. 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 port for dialysis left arm. excision chest wall skin cancer 16x5x3 cm 11/14/2017 - Social History Smoking Status: Former smoker Smokeless Tobacco Status: No Alcohol use: none Drug use: none - Family History Mother Hx Family Cardiac Disorders: Yes Hx Family Respiratory Disorders: No Hx Family Cancer: No Hx Family GI Disorders: No Hx Family Endocrine Disorder: No Hx Family Neuromuscular Disorders: No Hx Family Neurologic Disorders: No Hx Family HEENT Disorders: No Hx Family Autoimmune Disorders: No Internal Medicine - H&P: Meds Midodrine [ProAmatine] 10 mg PO MOWEFR 09/02/17 [History] Cholecalciferol (Vitamin D3) [Vitamin D3] 50,000 unit PO TU 04/04/18 [History] Allergy/AdvReac Type Severity Reaction Status Date / Time No Known Allergies Allergy Verified 11/12/18 16:48 All Systems PM: A 10-system review of systems was performed and is negative for pertinent findings except as documented above in the HPI. - Constitutional Constitutional: anorexia, lethargy, malaise, no chills, no fever(s) - EENT Eyes: no blurry vision, no change in vision Ears: no tinnitus - Cardiovascular Cardiovascular ROS IM: dyspnea, dyspnea on exertion, no chest pain, no palpitations - Respiratory Respiratory: cough, dyspnea, dyspnea on exertion, chest congestion, excessive phlegm production, no hemoptysis - Gastrointestinal Gastrointestinal: no abdominal pain, no diarrhea, no nausea, no vomiting - Genitourinary Genitourinary ROS male: other (does not produce urine) - Musculoskeletal Musculoskeletal ROS IM: muscle weakness, stiffness, no numbness, no tingling - Integumentary Integumentary IM: no rash, no skin ulcer - Neurological Neurological ROS: weakness, no numbness, no tremor(s) - Endocrine Endocrine IM: fatigue - Hematologic/Lymphatic Hematologic/Lymphatic: no easy bleeding, no easy bruising - Constitutional Vitals: Temp Pulse Resp BP Pulse Ox 97.7 F 87 15 76/43 98 11/25/18 18:43 11/25/18 21:24 11/25/18 21:24 11/25/18 21:24 11/25/18 21:24 General appearance: Present: cachectic, cooperative, A&O X 3 Exam: general - cachexic male, laying in bed in mild distress, able to speak in full sentences, aox3 heent - sunken eyes, dry MM, no scleral icterus, appears pale neck - trachea midline, supple cardio - tacycardia, s1s2 cta lungs - rhonchi, coarse breath sounds in all lung rothman abd - cachexic, no peritoneal signs, no rebound or guarding extremities - 2-3+ pitting edema bilaterally up to the knees, feet cool to touch, diminished capillary refill skin - cool, dry, intact neuro - no FND psych - appears anxious Internal Med - H&P Results - Labs CBC & Chem 7: 11/25/18 18:50 11/25/18 18:50 Labs: Short CBC 11/25/18 Range/Units 18:50 WBC 11.6 H (4.3-11.1) K/mcL Hgb 12.4 L (12.9-16.9) g/dL Hct 37.3 L (37.5-50.1) % Plt Count 326 (140-400) K/mcL Neutrophils # 10.5 H (1.6-8.9) K/mcL BMP 11/25/18 18:50 Sodium 142 Potassium 3.7 Chloride 93 L Carbon Dioxide 27 BUN 40 H Creatinine 5.88 H Glucose 113 H Calcium 9.8 Cardiac Enzymes 11/25/18 Range/Units 18:50 Troponin I 0.12 H* (< 0.04) ng/mL - ABG Interpretation ABG results: 11/25/18 19:15 VBG pH 7.32 VBG pCO2 54 H VBG pO2 27 VBG HCO3 28 H - Impressions ITS Impressions Chest X-Ray 11/25/18 18:50 IMPRESSION: Increased airspace opacity in the right mid lung suspicious for pneumonia. Recommend follow-up to ensure resolution. D/ / Thea Black MD / Thea Black MD Interpreting Provider: Thea Black MD - Assessment and Plan (1) Sepsis Current Visit: Yes Status: Acute Assessment and plan: Pt with sepsis likely secondary to PNA presenting with increasing cough, sputum production and SOB - usually doesn't require oxygen, currently on oxmask - meets criteria based on HR, RR, BP - lactic acid elevated 2.6 - procalcitonin 2.04 Pt meets hospital acquired PNA, has been hospitalized in the last 90 days and received IV abx versus known aspiration/aspiration PNA - was recently sent home with aspiration PNA coverage 10 day course of augmentin, completed 3 days - blood cx on 11/12 negative for growth - barium swallow from previous visit showing: Oral phase of swallowing was grossly within normal limits. There was laryngeal penetration and aspiration with the thin liquids and nectar. With the other media there was a moderate amount of residue seen within the vallecular. XR chest from admission showing: - increased airspace opacity in the right mid lung suspicious for pneumonia. XR from previous admission showing: - suspected atelectasis vs PNA in medial right lung base Plan: - 500cc bolus 0.9% NS - continue 75cc/hr 0.9% NS - blood cx pending - urine antigens pending - monitor cbc/bmp - continue IV abx - vancomycin, zosyn day 1 - MRSA swab pending - palliative care consulted - nephrology consulted - duonebs - telemetry montioring - pulse ox monitoring, keep o2 sat >88% - FEN: NPO - DVT prophylaxis: sq heparin - dispo: IV abx tonight, pt wishes to go home w hospice tomorrow Qualifiers: Sepsis type: sepsis due to unspecified organism Qualified Code(s): A41.9 - Sepsis, unspecified organism (2) Goals of care, counseling/discussion Current Visit: Yes Status: Acute Assessment and plan: Did speak to caregivers and nieces about the pt current status. Pt wishes to be a DNR-DNI-CCA overnight and to go home with oxygen tomorrow to be made comfortable. Pt wishes to have antibiotics tonight and fluids as needed but doesn't wish to have invasive line placement or pressors. Palliative care did see the pt last time he was here and he signed papers to be a DNR-CCA at that time. Will reconsult palliative care to see pt tomorrow. (3) Protein calorie malnutrition Current Visit: No Status: Chronic Assessment and plan: BMI 14.5, chronic. Qualifiers: Protein-calorie malnutrition severity: severe Qualified Code(s): E43 - Unspecified severe protein-calorie malnutrition (4) Vitamin D deficiency Current Visit: No Status: Chronic Assessment and plan: will hold home vitamin D supplement for now. (5) ESRD (end stage renal disease) Current Visit: No Status: Chronic Assessment and plan: Pt is ESRD on HD MWF. Left arm fistula, doesn't produce his own urine. Will consult nephrology in the event that pt is able to tolerate HD tomorrow. (6) Leukocytosis Current Visit: Yes Status: Acute Assessment and plan: WBC 11.6, likely secondary to PNA. Qualifiers: Leukocytosis type: unspecified Qualified Code(s): D72.829 - Elevated white blood cell count, unspecified (7) Pneumonia Current Visit: Yes Status: Acute Assessment and plan: See plan as above for sepsis. Qualifiers: Pneumonia type: due to unspecified organism Laterality: unspecified laterality Lung location: unspecified part of lung Qualified Code(s): J18.9 - Pneumonia, unspecified organism (8) Hypotension Current Visit: Yes Status: Acute Assessment and plan: Hypotension likely secondary to sepsis. Pt MAP<65 and he is refusing CVC placement. Refusing pressors. Only wishes to continue with fluid boluses. Qualifiers: Hypotension type: other hypotension type Qualified Code(s): I95.89 - Other hypotension (9) Elevated troponin Current Visit: No Status: Acute Assessment and plan: Troponin 0.12 on admission. EKG showing no acute changes. Pt without chest pain. Likely type 2 in the setting of demand ischemia and sepsis. (10) Anemia Current Visit: No Status: Chronic Assessment and plan: Hemoglobin 12.4 on admission, likely secondary to anemia of chronic disease. Will continue to monitor with morning labs. Qualifiers: Anemia type: due to chronic kidney disease Chronic kidney disease stage: unspecified stage Qualified Code(s): N18.9 - Chronic kidney disease, unspecified; D63.1 - Anemia in chronic kidney disease (11) Dysphagia Current Visit: No Status: Acute Assessment and plan: Barium swallow from previous visit showing: Oral phase of swallowing was grossly within normal limits. There was laryngeal penetration and aspiration with the thin liquids and nectar. With the other media there was a moderate amount of residue seen within the vallecular Patient refusing feeding tube. Last visit signed against medical advice paper work so that he can eat. Continues to aspirate. Will keep NPO for tonight. Qualifiers: Dysphagia type: other dysphagia Qualified Code(s): R13.19 - Other dysphagia (12) DVT prophylaxis Current Visit: No Status: Acute Assessment and plan: sq heparin (13) Acute respiratory failure Current Visit: Yes Status: Acute Assessment and plan: Pt requiring increasing amounts of oxygen. Not on home oxygen. Requiring 10 L oxymask to keep O2 sat in the high 80's. Qualifiers: Respiratory failure complication: hypoxia Qualified Code(s): J96.01 - Acute respiratory failure with hypoxia - Time Spent With Patient Total time spent is greater than 50% in coordination of care (as documented) at patient's floor/unit and/or counseling patient: 25 - 35 minutes <Aj Restrepo - Last Filed: 11/26/18 03:42> Date of Encounter: 11/25/18 Internal Medicine - H&P: HPI History of present illness: Mr. Lutz is a 88 year old male All Systems PM: A 10-system review of systems was performed and is negative for pertinent findings except as documented above in the HPI. - Constitutional Vitals: Temp Pulse Resp BP Pulse Ox 97.4 F L 86 16 104/65 100 11/25/18 23:19 11/25/18 23:19 11/26/18 00:17 11/25/18 23:19 11/26/18 00:17 Internal Med - H&P Results - Labs CBC & Chem 7: 11/25/18 18:50 11/25/18 18:50 Labs: Short CBC 11/25/18 Range/Units 18:50 WBC 11.6 H (4.3-11.1) K/mcL Hgb 12.4 L (12.9-16.9) g/dL Hct 37.3 L (37.5-50.1) % Plt Count 326 (140-400) K/mcL Neutrophils # 10.5 H (1.6-8.9) K/mcL BMP 11/25/18 18:50 Sodium 142 Potassium 3.7 Chloride 93 L Carbon Dioxide 27 BUN 40 H Creatinine 5.88 H Glucose 113 H Calcium 9.8 Cardiac Enzymes 11/25/18 11/25/18 Range/Units 18:50 23:03 Troponin I 0.12 H* 0.12 H* (< 0.04) ng/mL - ABG Interpretation ABG results: 11/25/18 19:15 VBG pH 7.32 VBG pCO2 54 H VBG pO2 27 VBG HCO3 28 H - Impressions ITS Impressions Chest X-Ray 05/21/19 18:50 IMPRESSION: Increased airspace opacity in the right mid lung suspicious for pneumonia. Recommend follow-up to ensure resolution. D/ / Thea Black MD / Thea Black MD Interpreting Provider: Thea Black MD - Assessment and Plan (1) Vitamin D deficiency Current Visit: No Status: Chronic (2) ESRD (end stage renal disease) Current Visit: No Status: Chronic (3) Leukocytosis Current Visit: Yes Status: Acute Qualifiers: Leukocytosis type: unspecified Qualified Code(s): D72.829 - Elevated white blood cell count, unspecified (4) Sepsis Current Visit: Yes Status: Acute Qualifiers: Sepsis type: sepsis due to unspecified organism Qualified Code(s): A41.9 - Sepsis, unspecified organism (5) DVT prophylaxis Current Visit: No Status: Acute (6) Pneumonia Current Visit: Yes Status: Acute Qualifiers: Pneumonia type: due to unspecified organism Laterality: unspecified laterality Lung location: unspecified part of lung Qualified Code(s): J18.9 - Pneumonia, unspecified organism (7) Hypotension Current Visit: Yes Status: Acute Qualifiers: Hypotension type: other hypotension type Qualified Code(s): I95.89 - Other hypotension (8) Elevated troponin Current Visit: No Status: Acute (9) Anemia Current Visit: No Status: Chronic Qualifiers: Anemia type: due to chronic kidney disease Chronic kidney disease stage: unspecified stage Qualified Code(s): N18.9 - Chronic kidney disease, unspecified; D63.1 - Anemia in chronic kidney disease (10) Dysphagia Current Visit: No Status: Acute Qualifiers: Dysphagia type: other dysphagia Qualified Code(s): R13.19 - Other dysphagia (11) Goals of care, counseling/discussion Current Visit: Yes Status: Acute (12) Protein calorie malnutrition Current Visit: No Status: Chronic Qualifiers: Protein-calorie malnutrition severity: severe Qualified Code(s): E43 - Unspecified severe protein-calorie malnutrition (13) Acute respiratory failure Current Visit: Yes Status: Acute Qualifiers: Respiratory failure complication: hypoxia Qualified Code(s): J96.01 - Acute respiratory failure with hypoxia - Time Spent With Patient Total time spent is greater than 50% in coordination of care (as documented) at patient's floor/unit and/or counseling patient: - Attending Attestation I performed a history and physical examination of the patient and discussed their management with the resident. I reviewed the resident's note and agree with the documented plan of care. In short patient is a 88-year-old male with a past medical history of end-stage renal disease currently on dialysis, skin and colon cancer recently discharged for treatment for aspiration pneumonia who now presents with worsening shortness of breath. Reportedly found to be hypoxic with an O2 saturation of 70% and hypotensive with a systolic blood pressure in the 50s. Workup in the ED concerning for pneumonia. Patient met sepsis criteria but was also clinically fluid overloaded with conservative fluid resuscitation of 1715 L bolus in the ED. Blood pressure remained soft and the 80s to 90s systolic. Patient also has dysphasia worked up on previous admission with recommendation for feeding tube. However patient refused. Patient furthermore did not want central line placed and was more interested in discuss ion about hospice care and no further aggressive treatment measures. His CODE STATUS was changed to DNR CC DNI. We will continue treatment for healthcare associated pneumonia. We will obtain palliative care consult in the morning to discuss possible transition to hospice.
[2018-11-25] MEDS ORDERED: Naloxone 0.4 MG/ML INJ IVP PRN (21:49)
[2018-11-25] MEDS ORDERED: 0.9 % Sodium Chloride 1,000 ML IVC SCH ×2 (22:00→22:15)
[2018-11-25] MEDS ORDERED: PIPERACILLIN IVPB SCH (23:00)
[2018-11-25] MEDS ORDERED: TAZOBACTAM IVPB SCH (23:00)
[2018-11-25] MEDS ORDERED: SODIUM CHLORIDE MINI 0.9% IVPB SCH (23:00)
[2018-11-26] MEDS ORDERED: Piperacillin/Tazobactam 2.25 GM in 0.9 % Sodium Chloride Mini Bag 100 ML IVPB SCH
[2018-11-26] MEDS: Ipratropium/Albuterol Neb 3 ML IH SCH ×3 (00:17→07:21)
[2018-11-26] MEDS: *HR* Heparin 5,000 UNIT/ML VIAL SQ SCH ×2 (00:33→06:20)
[2018-11-26 06:30] LABS: Hematocrit 30.4 % (37.5-50.1); Mean Corpuscular HGB Conc 33.2 g/dL (31.6-35.5); Mean Corpuscular Hemoglobin 32.9 pg (28.0-33.3); Mean Platelet Volume 9.2 fL (9.4-12.4); Platelet Count 197 K/mcL (140-400); Red Blood Count 3.07 M/mcL (4.19-5.50); Red Cell Distribution Width 15.9 % (11.5-14.5)
[2018-11-26 06:31] LABS: Hemoglobin 10.1 g/dL (12.9-16.9)
[2018-11-26 06:50] LABS: Calcium 8.5 mg/dL (8.6-10.3); Potassium 3.6 mEq/L (3.5-5.1)
[2018-11-26 06:55] LABS: Troponin I 0.1 ng/mL (< 0.04)
--- NOTE | 2018-11-26 07:26 | Internal Med Progress Note ---
Hospitalist Progress Note - Encounter Date of Encounter: 11/26/18 Time of Encounter: 07:20 - Exam Vitals: Temp Pulse Resp BP Pulse Ox 97.8 F 89 16 91/54 100 11/26/18 04:50 11/26/18 04:50 11/26/18 04:50 11/26/18 04:50 11/26/18 04:50 Exam: general - cachexic male, laying in bed in mild distress, able to speak in full sentences, aox3 heent - sunken eyes, dry MM, no scleral icterus, appears pale neck - trachea midline, supple cardio - tacycardia, s1s2 cta lungs - rhonchi, coarse breath sounds in all lung rothman abd - cachexic, no peritoneal signs, no rebound or guarding extremities - 2-3+ pitting edema bilaterally up to the knees, feet cool to touch, diminished capillary refill skin - cool, dry, intact neuro - no FND psych - appears anxious - Assessment and Plan (1) Sepsis Current Visit: Yes Status: Acute Assessment and Plan: Pt with sepsis likely secondary to PNA presenting with increasing cough, sputum production and SOB - usually doesn't require oxygen, currently on oxmask - meets criteria based on HR, RR, BP - lactic acid elevated 2.6 - procalcitonin 2.04 Pt meets hospital acquired PNA, has been hospitalized in the last 90 days and received IV abx versus known aspiration/aspiration PNA - was recently sent home with aspiration PNA coverage 10 day course of augmentin, completed 3 days - blood cx on 11/12 negative for growth - barium swallow from previous visit showing: Oral phase of swallowing was grossly within normal limits. There was laryngeal penetration and aspiration with the thin liquids and nectar. With the other media there was a moderate amount of residue seen within the vallecular. XR chest from admission showing: - increased airspace opacity in the right mid lung suspicious for pneumonia. XR from previous admission showing: - suspected atelectasis vs PNA in medial right lung base Plan: - 500cc bolus 0.9% NS - continue 75cc/hr 0.9% NS - blood cx pending - urine antigens pending - monitor cbc/bmp - continue IV abx - vancomycin, zosyn day 1 - MRSA swab pending - palliative care consulted - nephrology consulted - fang - telemetry montioring - pulse ox monitoring, keep o2 sat >88% - FEN: NPO - DVT prophylaxis: sq heparin - dispo: IV abx tonight, pt wishes to go home w hospice tomorrow (2) Vitamin D deficiency Current Visit: No Status: Chronic Assessment and Plan: will hold home vitamin D supplement for now. (3) ESRD (end stage renal disease) Current Visit: No Status: Chronic (4) Leukocytosis Current Visit: Yes Status: Acute (5) DVT prophylaxis Current Visit: No Status: Acute (6) Pneumonia Current Visit: Yes Status: Acute (7) Hypotension Current Visit: Yes Status: Acute (8) Elevated troponin Current Visit: No Status: Acute (9) Anemia Current Visit: No Status: Chronic (10) Dysphagia Current Visit: No Status: Acute (11) Goals of care, counseling/discussion Current Visit: Yes Status: Acute (12) Protein calorie malnutrition Current Visit: No Status: Chronic (13) Acute respiratory failure Current Visit: Yes Status: Acute - Time Spent with Patient Total time spent is greater than 50% in coordination of care (as documented) at patient's floor/unit and/or counseling patient: Internal Medicine: Result - Labs CBC & Chem 7: 11/26/18 05:47 11/26/18 05:47 Labs: Short CBC 11/25/18 11/26/18 Range/Units 18:50 05:47 WBC 11.6 H 5.1 D (4.3-11.1) K/mcL Hgb 12.4 L 10.1 L D (12.9-16.9) g/dL Hct 37.3 L 30.4 L (37.5-50.1) % Plt Count 326 197 (140-400) K/mcL Neutrophils # 10.5 H (1.6-8.9) K/mcL BMP 11/25/18 11/26/18 18:50 05:47 Sodium 142 142 Potassium 3.7 3.6 Chloride 93 L 101 Carbon Dioxide 27 25 BUN 40 H 41 H Creatinine 5.88 H 5.76 H Glucose 113 H 86 Calcium 9.8 8.5 L Cardiac Enzymes 11/25/18 11/25/18 11/26/18 Range/Units 18:50 23:03 05:47 Troponin I 0.12 H* 0.12 H* 0.10 H* (< 0.04) ng/mL - Impressions Impressions Chest X-Ray 11/25/18 18:50 IMPRESSION: Increased airspace opacity in the right mid lung suspicious for pneumonia. Recommend follow-up to ensure resolution. D/ / Thea Black MD / Thea Black MD Interpreting Provider: Thea Black MD Consult Discharge Plan - Plan Referrals: NONE,PCP [Primary Care Provider] - (1) Sepsis Qualifiers: Sepsis type: sepsis due to unspecified organism Qualified Code(s): A41.9 - Sepsis, unspecified organism (4) Leukocytosis Qualifiers: Leukocytosis type: unspecified Qualified Code(s): D72.829 - Elevated white blood cell count, unspecified (6) Pneumonia Qualifiers: Pneumonia type: due to unspecified organism Laterality: unspecified laterality Lung location: unspecified part of lung Qualified Code(s): J18.9 - Pneumonia, unspecified organism (7) Hypotension Qualifiers: Hypotension type: other hypotension type Qualified Code(s): I95.89 - Other hypotension (9) Anemia Qualifiers: Anemia type: due to chronic kidney disease Chronic kidney disease stage: unspecified stage Qualified Code(s): N18.9 - Chronic kidney disease, unspecified; D63.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
[2018-11-26] MEDS ORDERED: 0.9 % Sodium Chloride 250 ML IVC PRN (08:04)
[2018-11-26] MEDS ORDERED: Piperacillin/Tazobactam 3.375 GM in 0.9 % Sodium Chloride Mini Bag 100 ML IVPB SCH ×2 (08:06)
[2018-11-26] MEDS ORDERED: 0.9 % Sodium Chloride 1,000 ML PRIME SCH (08:15)
[2018-11-26] MEDS ORDERED: 0.9 % Sodium Chloride 1,000 ML ONE (09:24)
[2018-11-26] MEDS ORDERED: Albumin 25% 12.5gm/50mL 25.0 GM/100 ML IV.SOLN ONE (09:24)
[2018-11-26] MEDS ORDERED: Albumin 25% 25gram/100mL 25 GM/100 ML IV.SOLN IVPB ONE (09:25)
--- NOTE | 2018-11-26 10:53 | Event Note ---
Date of Encounter: 11/26/18 Time of Encounter: 10:45 Patient was consult for Palliative - however, he went to dialysis early this am. After approx an hour, became hypotensive and bradycardic. Lester triana was called, however, pt is DNR/DNI, so no ACLS performed and he still had a pulse. However, did pass away shortly thereafter. I did reached the patient's niece, Regina, and notified her of patient passing.
--- NOTE | 2018-11-26 10:57 | Death Note ---
<Ankur Bashir Jodie - Last Filed: 11/26/18 10:55> Discharge Sum: Summary - Date and Time Date of admission: 11/25/18 22:02 Date of : 11/26/18 Time of : 10:47 - Summary Details: Mr Lutz was admitted overnight on 11/25/18 for increasing shortness of breath. He does have a history of ESRD with HD schedule of MWF. Pt was recently discharged from [facility] with a course of antibiotics for pneumonia. At time of admission patient was found to have multiple sepsis criteria with tachycardia, tachypnea, and leukocytosis. Lactic acid was elevated at 2.6, BP was decreased at 58/49. He was given IV fluids and antibiotics. Pt was offered a CVC for pressor support but declined. Pt stated he wished to remain DNR-CCA-DNI overnight and to have dialysis as typically scheduled in the AM. On the morning of 11/26/18 pt underwent dialysis per his request, but during dialysis became bradycardic and hypotensive. CODE BLUE was called since the rapid response button was malfunctioning in the room. HD was stopped and pt was given 500cc IVF. 15 lpm supplemental O2 was started. Pt was also receiving albumin at the time. Pt was noted to lose pulses intermittently, but no chest compressions were performed in respect to patient's DNR-CCA-DNI. He was also noted to have apnea at the time and supplemental O2 was continued via oxy mask. BP did not improve despite these measures, nor did the apnea. Pt was returned to his room in 2A. Once in his 2A room the patient remained apneic. Shortly after, monitoring tech showed asystole. No pulse was palpated. Corneal reflex absent. Ausculation of heart and lungs revealed absence of cardiac and respiratory sounds. Pronounced at 10:47. Pt's nieces/POAs were notified by Ronda the palliative ANTENNA INSTALLER. - Additional Data Confirmation of as documented by pronouncing clinician: no pulse, no respirations, no heart sounds, pupils fixed and dilated Family: contacted Attending/PCP notified?: Yes Attending physician: Cristal Davidson MD Was code activated?: Yes Discharge Sum: Diag - PCOD Probable Cause of : Hypotension Discharge Sum: Prov - Provider Primary care physician: PCP NONE Consults: 11/25/18 21:50 Consult to Nephrology [CONS] Routine Consulting Provider: Kidney Nadine/REE/ALICE Reason for Consult: esrd on HD Call Completed: No Consult to Palliative Care [CONS] Routine Comment: Consulting Provider: Palliative Care Nadine Reason for Consult: code status, ?comfort care, known to palliative was rece ntly d/c 11/16 Call Completed: No 11/26/18 07:24 Consult to Speech Therapy [CONS] Routine Comment: Evaluate, develop and implement POC Reason for Consult: dysphagia refuses feeding tube Call Completed: No 11/26/18 08:15 Consult to Dialysis [CONS] QMWF 11/28/18 08:15 Consult to Dialysis [CONS] QMWF Pronouncing clinician: Ankur Bashir <Danilo Amaya - Last Filed: 11/26/18 18:36> Discharge Sum: Summary - Date and Time Date of admission: 11/25/18 22:02 - Additional Data Attending physician: Cristal Davidson MD Discharge Sum: Diag - PCOD Probable Cause of : Septic shock Discharge Sum: Prov - Provider Primary care physician: PCP NONE Consults: 11/25/18 21:50 Consult to Nephrology [CONS] Routine Consulting Provider: Shiva Mccoy/EMILEE Reason for Consult: esrd on HD Call Completed: No Consult to Palliative Care [CONS] Routine Comment: Consulting Provider: Liyah Care Nadine Reason for Consult: code status, ?comfort care, known to palliative was recently d/c 11/16 Call Completed: No 11/26/18 08:15 Consult to Dialysis [CONS] QMWF - Attending Attestation I saw and independently assessed this patient and I agree with summary as documented Exam Eyes- Pupils fixed and dilated CVS. Heart sounds absent Cause of . Septic Shock
--- NOTE | 2018-11-26 10:59 | Nephrology Consult Note ---
Date of Encounter: 11/27/18 Time of Encounter: 09:15 Assessment and Plan (1) ESRD (end stage renal disease) Status: Chronic The [facility] group was consulted to see this patient. His typical hand sole sewer(s) no longer rounds at [facility]. I spoke with him and he requested to continue hemodialysis and said that he wants to try it today. I informed him that due to his low blood pressures, he will only be able to do a shortened treatment today. I discussed the risks with him as well as with the postal supervisor for a game plan of using cold dialysate, shorter treatment, lower blood flows, lower dialysate flows, and only gentle fluid removal at 0.75 kg plus the use of his typically given Midodrine and to use 25gm of Albumin with dialysis. All these efforts were ordered and discussed before startiing dialysis. I had requested run sheets / medical records from his outside-dialysis unit. However, about one hour and 15 minutes into his dialysis, he developed hypotension and altered mental status/lost consciousness according to the postal supervisor, and a MACHINE GUNNER/Code blue was called. I arrived in less than 1 minute as I was just rounding nearby, and I instructed the postal supervisor to give 500mL 0.9% saline bolus via the dialysis access to his left forearm AVF; and the dialysis needles were removed. He had a pulse was but not alert and never regained consciousness. He was not breathing. Of note, he has in place a DNR-CCA ordere, and so chest compressions and ACLS was not started. I stayed by the pt's bedside for quite some time along with the Code Team and then his hospitalist arrived. The pt was then transported out of the dialysis unit. Discussed in detail with the Code Team, and discussed with the the Internal Medicine resident (who knows the family well and reaffirmed that they and the pt wanted dialysis despite knowing how frail and how high risk he has been). (2) Peripheral edema Status: Acute Present and so only a reasonable UF goal of 0.75kg was ordered plus albumin 25gm during dialysis to support his intradialytic BPs and gentle UF. Only a gentle HD was ordered. (3) Hypotension Status: Acute Midodrine as per typical protocol was given. 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 Qualifiers: Malnutrition type: protein-calorie malnutrition Protein-calorie malnutrition severity: severe Qualified Code(s): E43 - Unspecified severe protein-calorie malnutrition History of Present Illness - Reason for Consult Consult date: 11/26/18 end stage renal disease Requesting physician: Td Burroughs - Chief Complaint ESRD - History of Present Illness The patient is a pleasant 88-year-old male with a past medical history of end-stage renal disease on hemodialysis every Saturday/Saturday/Saturday. The [facility] nephrology group was consulted because his primary nephrology group no longer rounds on their patients who are at [facility] (I will plan to request medical records from his dialysis unit). I was consulted by the overnight team and paged this morning to help resume his dialysis, which they said he still wants to continue. He is listed as a DNR-CCA. I read previous [facility] notes, some of which were still in draft form from a previous admission recently. The night hospitalist resident notified me that after discussion with the patient and his family, that he still wants to continue dialysis. I saw the patient in the dialysis unit before he was connected/started, and he affirmed feeling tired and weak, and that his swelling of his lower extremities has been present for at least a few weeks. He said that he has been short of breath, and with cough, which started a few weeks ago. He was diagnosed with pneumonia. He affirmed that he receives midodrine on each day of dialysis, and I was told it was already given. He did not affirm chest pain, nausea, vomiting, but did report that he has a persistently diminished appetite. He said his AVF has been working well without problems recently to his knowledge. Past Med Surg Social Fam HX - Past Medical History Medical history: cancer, dialysis, kidney stones, renal disease, other Additional medical history: Colon Cancer. Psychiatric history: no psych history - Past Surgical History Surgical History: colostomy Additional surgical history: GI sx 2008. fistula 2014. 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 port for dialysis left arm. excision chest wall skin cancer 16x5x3 cm 11/14/2017 - Social History Smoking Status: Former smoker Smokeless Tobacco Status: No Alcohol use: none Drug use: none - Family History Mother Hx Family Cardiac Disorders: Yes Hx Family Respiratory Disorders: No Hx Family Cancer: No Hx Family GI Disorders: No Hx Family Endocrine Disorder: No Hx Family Neuromuscular Disorders: No Hx Family Neurologic Disorders: No Hx Family HEENT Disorders: No Hx Family Autoimmune Disorders: No Medications and Allergies Midodrine [ProAmatine] 10 mg PO MOWEFR 09/02/17 [History] Cholecalciferol (Vitamin D3) [Vitamin D3] 50,000 unit PO TU 04/04/18 [History] 3 Allergy/AdvReac Type Severity Reaction Status Date / Time No Known Allergies Allergy Verified 11/12/18 16:48 Review of Systems All Systems: reviewed and no additional remarkable complaints except as stated Exam - Vital Signs Vital signs: Initial Vital Signs Temp Pulse Resp BP Pulse Ox 97.7 F 97 24 0/0 0 11/25/18 18:43 11/25/18 18:43 11/25/18 18:43 11/25/18 18:43 11/25/18 18:43 Vital Signs - Last 8 Hours Temp Pulse Resp BP Pulse Ox 11/26/18 09:10 98.2 F 16 106/47 11/26/18 07:42 98.3 F 88 15 96/67 96 11/26/18 07:21 18 100 11/26/18 04:50 97.8 F 89 16 91/54 100 11/26/18 04:20 85 20 85/47 11/26/18 04:19 18 100 Intake and Output 11/25/18 11/26/18 11/26/18 23:59 07:59 15:59 Intake Total 1420 / 1420 600 / 600 Output Total 350 / 350 Balance 1420 / 1420 250 / 250 Intake: IV Fluids 1420 / 1420 0.9 % Sodium Chloride 250 ML @ 500 / 500 937.5 mls/hr IVC .Q16M ONE Rx#: [id number] 0.9 % Sodium Chloride 500 ML @ 500 / 500 999 mls/hr IVC .Q31M ONE Rx#: [id number] Maxipime 2,000 MG In Water for 20 / 20 inj. (sterile) 20 ML @ 300 mls/ hr IVP ONCE ONE Rx#:[id number] Levaquin Premix 750mg/150 mL 150 / 150 750 mg In 150 ml @ 100 mls/hr IVPB ONCE ONE Rx#:[id number] Vancocin 750 MG In 0.9 % Sodium 250 / 250 Chloride 250 ML @ 250 mls/hr IVPB ONCE ONE Rx#:[id number] Oral 0 / 0 Intake, Rinseback and Flushes 600 / 600 Output: Stool 350 / 350 Other: Meal NPO Percent of Meal Consumed 0% Weight 42 kg 42.7 kg Blood Glucose* 79 Hemodialysis Net Fluid Removed 0 (mL) Patient Weight 11/26/18 23:59 Weight 42.7 kg - General Appearance General appearance: cachectic, chronically ill, fatigue, frail EENT: ATNC, mucous membranes moist Neck: no JVD, supple Respiratory: clear (but slightly diminished in the bases bilaterally) Cardiology: edema (1-2+ pretibial pitting lower extremity edema) - Dialysis Access Dialysis Vascular Access: Arteriovenous Fistula (with excellent thrill/bruit) thrill: Yes bruit: Yes Gastrointestinal: normoactive bowel sounds, no tenderness, no guarding Additional Comments: very thin and scafoid appearing Integumentary: no rash, warm and dry Neurologic: no focal deficit, no asterixis, alert and oriented x3 Musculoskeletal: no cyanosis, no clubbing Psychiatric: mood/affect appropriate, cooperative Results - Lab Results 11/26/18 05:47 11/26/18 05:47 Most recent lab results 11/26/18 05:47 Calcium 8.5 L Consult Discharge Plan - Plan Referrals: NONE,PCP [Primary Care Provider] -
[2018-11-26 11:19] VITALS: BP 73/20
--- NOTE | 2018-11-26 13:08 | Electrocardiograph Report ---
[address] [place], [place] [address] Test Date: 2018-11-25 Pat Name: Augustus Lutz Department: [id number] Room: 2A71 Gender: M Gore Inserter: : 1930 Requested By: Dougie Evangelista Order Number: [id number] Reading MD: Adan Alcantar Measurements Intervals [place] Rate: 96 P: 73 UT: 206 QRS: 79 QRSD: 126 T: 136 QT: 417 QTc: 525 Interpretive Statements Sinus rhythm Atrial premature complex Prolonged UT interval Nonspecific intraventricular conduction delay Probable anterior infarct, age indeterminate Artifact in lead(s) I II III aVR aVL aVF V4 V6 Electronically Signed On 11-26-2018 13:06:43 EDT by Adan Alcantar
== END 2018-11-26 10:47 | disposition expired | DRG 871 ==
LOC: EMEROOARM 18:38 → 2ANU 22:02
PROVIDERS: ADMIT Internal Medicine; ATTEND Internal Medicine